=== PATIENT | female | born 1955 | race Caucasian/White ===

== ENCOUNTER 2016-11-11 21:40 | Inpatient (IN) | payer MEDICARE, OTHER ==
[~2016-11-11] VITALS: Ht 162.6 cm; Wt 112.7 kg
[~2016-11-11 21:40] MED LIST: ACYCLOVIR15 GM TP; ADVAIR 250/501 DISK INH; ADVAIR HFA [SP]12 GM INH; AMRIX15 M1 PO; AMRIX15 MG PO; ARTIFICIAL TEAR15 ML EACH EYE; ATIVAN0.5 MG PO; ATIVAN1 MG PO; BENADRYL25 MG PO; BROVANA15 MCG/2 M INH; BUMEX 1 MG TAB1 MG PO; BYSTOLIC20 MG PO; Bactroban ointment NASAL; CLEOCIN HCL300 MG PO; CLONAZEPAM0.25 MG/TA PO; COLACE100 MG PO; COMPAZINE10 MG PO; CORTISPORIN OTI10 M1 LEFT EAR; CYCLOBENZAPRINE5 MG PO; DALIRESP500 MCG PO; DILAUDID4 MG PO; DULCOLAX10 MG/SUPP RC; DUONEB 2.5-0.5 M3 ML INH; DUONEB 2.5-0.5 M3 ML UPD; ELIQUIS2.5 MG PO; FLORAJEN3 CAPS460 MG PO; FLUTICASONE PRO16 GM NS; GLUCOPHAGE1000 MG PO; HYDROCODONE-APA1 TAB PO; IMODIUM2 MG PO; IPRAT-ALBUT 0.5-3 ML UPD; JANUMET PO; JANUVIA50 MG PO; K-DUR20 MEQ PO; KLONOPIN0.5 MG PO; LANTUS SOL100 UNIT/1 SQ; LASIX20 MG; LEVAQUIN500 MG PO; LEXAPRO20 MG PO; LIDODERM 5 %1 PATCH TD; LOVENOX30 MG/0.3 SQ; LYRICA50 MG PO; LYRICA75 MG PO; MEDROL DOSE PACK4 MG PO; MERREM 500 MG/500 MG IV; MUCINEX600 MG PO; NEURONTIN600 MG PO; NORCO 10/325 TA1 TA1 PO; NORCO 5/325 TAB1 TA1 PO; NORVASC5 MG PO; OMNICEF300 MG PO; ONDANSETRON4 MG/2 M3 PO; OXYCODONE HCL10 MG PO; OXYCONTIN30 MG PO; PLAQUENIL200 MG PO; PRAVACHOL20 MG PO; PROCARDIA10 MG PO; PROTONIX40 MG PO; PROVENTIL HFA6.7 GM INH; PROVENTIL/2.5 MG/3 M NEB; ROBITUSSIN DM 110 ML PO; SALINE FLUSH10 ML IV; SENOKOT-S TABLE1 TAB PO; SINGULAIR10 MG PO; STERAPRED 5MG 125 MG PO; STERAPRED DS 1210 MG OR; SYMBICORT 16010.2 GM INH; SYNTHROID200 MC1 PO; SYNTHROID25 MCG PO; SYNTHROID300 MCG PO; TESSALON PERLE100 MG PO; TICLID250 MG PO; TYLENOL PM1 TAB PO; VALIUM 2 MG TAB2 MG PO; VANCOMYCIN1 GM/2501 IV; VANCOMYCIN250 MG/51 PO; XANAX0.5 MG PO; Z PACK; ZIAC 10/6.25 MG1 TAB PO; ZITHROMAX250 MG PO; ZYVOX600 MG PO
[2016-11-11 22:17] LABS: BASOPHILS 0.5 % (0.0-2.0); EOSINOPHILS 1.8 % (0-7); HEMATOCRIT 33.4 % (36.0-48.0); HEMOGLOBIN 9.6 g/dL (12-16); IMMATURE GRANULOCYTES 0.3 % (0-5); LYMPHOCYTES 6.7 % (15-50); MCH 22.9 pg (26.0-34.0); MCHC 28.7 g/dL (31.0-37.0); MCV 79.5 fL (80.0-100.0); MEAN PLATELET VOLUME 10.2 fL (7.4-10.4); MONOCYTES 5.4 % (2-11); NEUTROPHILS 85.3 % (40-80); PLATELET COUNT 237 10x3/uL (130-400); WBC 10.2 10x3/uL (4.8-10.8)
[2016-11-11 22:58] LABS: ALBUMIN 3.3 g/dL (3.4-5.0); ALKALINE PHOSPHATASE 65 U/L (46-116); ALT (SGPT) 38 U/L (10-68); BILIRUBIN - TOTAL 0.31 mg/dL (0.2-1.3); CALC OSMOLALITY 287 mosm/kg (275-300); CALCIUM 8.9 mg/dL (8.5-10.1); CARBON DIOXIDE 36.6 mmol/L (21.0-32.0); CHLORIDE - SERUM 100 mmol/L (98-107); CREATINE KINASE 57 UL (21-215); GLUCOSE 226 mg/dL (74-106); PROTEIN - SERUM 7.4 g/dL (6.4-8.2); SODIUM 142 mmol/L (136-145); TROPONIN-I < 0.017 ng/mL (0.000-0.060); UREA NITROGEN 6 mg/dL (7-18); eGFR NON AFRICAN AMERICAN 59 mL/min (90-120)
[2016-11-11 22:59] LABS: POTASSIUM - SERUM 2.9 mmol/L (3.5-5.1)
[2016-11-12] VITALS (26 sets, daily range): BP systolic 113–166; BP diastolic 56–85; Ht 162.6 cm; Wt 112.7 kg
--- NOTE | 2016-11-12 00:05 | NUR ---
RECIEVED PATIENT FROM ER VIA STRETCHER, PLACED IN 230. EYES PERRLA @ 4MM WITH BRISK RESPONSE, SCLERA IS WHITE AND CLEAR. 16FR NGT PRESENT IN R NARE CONNECTED TO LIS, ETT 7.0 @ 24CM NOTED LIPLINE MID. S1/S2 NOTED WITH PATIENT NSR ON TELEMETRY. BREATHING IS SHALLOW AND RYTHMIC, CRACKLES NOTED BILATERAL UPPER LOBES WITH DIMINISHED LOWER LOBES. PATIENT ON VENT A/C, R-14, V-550, 50%, PEEP-5. ABDOMEN IS SLIGHTLY DISTENDED AND SOFT, NON-TENDER TO PALPATION. 16FR COSBY SECURED BY STATLOCK WITH PALE YELLOW URINE NOTED IN COLLECTION BAG. NO MOVEMENT IN EXTREMITIES, ALL PULSES PALPABLE. PASSIVE ROM PERFORMED WITHOUT DIFFICULTY, CARP REFILL <3 SEC. PATIENT WAS D/C FROM HOSPITAL AT HER REQUEST AROUND 1600 11/11, FAMILY STATES EMS WAS CALLED AROUND 1999. PATIENT SAT ON RA WAS 47% FOR UNKNOWN LENGTH OF TIME, INTUBATED IN AMBULANCE EN ROUTE TO ER. FAMILY STATES THAT NO MEDICATION WAS TAKEN BETWEEN DISCHARGE AND READMISSION. 18G IV NOTED IN L AC AND 20G STARTED IN L WRIST, SEE FLOW SHEET FOR FLUIDS. NO FURTHER NEEDS AT THIS TIME, WILL CONTINUE TO MONITOR.
--- NOTE | 2016-11-12 03:00 | NUR ---
REASSESSMENT COMPLETE, PATIENT RESTING IN BED WITH EYES CLOSED ON VENT. BREATHING IS SHALLOW AND RYTHMIC, CRACKLES NOTED BILATERAL UPPER LOBES WITH DIMINISHED LOWER LOBES. S1/S2 NOTED WITH PATIENT NSR ON TELEMETRY. L AC & L WRIST IV PATENT WITH FLUIDS INFUSING. PALE YELLOW URINE NOTED IN COSBY. NGT R NARE TO LIS, 10ML GREEN/BROWN FLUID SUCTIONED. ETT 7.0, 24CM SECURED IN PLACE LIPLINE MID. REPOSITIONED AND ORAL CARE PROVIDED FOR COMFORT, WILL CONTINUE TO MONITOR.
[2016-11-12 03:21] LABS: APPEARANCE CLEAR (CLEAR); BILIRUBIN NEGATIVE (NEGATIVE); COLOR YELLOW (YELLOW); GLUCOSE 50 mg/dL (NEGATIVE); KETONE NEGATIVE (NEGATIVE); NITRITE NEGATIVE (NEGATIVE); PH 6.5 (5.0-6.0); PROTEIN TRACE mg/dL (NEGATIVE); SPECIFIC GRAVITY 1.015 (1.005-1.020); UROBILINOGEN NORMAL (NORMAL)
[2016-11-12 03:29] LABS: EPITHELIAL CELLS 0-5 /hpf (0-5); LEUKOCYTE ESTERASE TRACE (NEGATIVE)
[2016-11-12 03:30] LABS: BACTERIA FEW /hpf (NONE SEEN); GRANULAR CAST RARE /lpf (NONE SEEN); HYALINE CAST OCC /lpf (NONE SEEN)
--- NOTE | 2016-11-12 05:00 | NUR ---
PATIENT RESTING IN BED WITH EYES CLOSED, BREATHING IS SHALLOW ON VENTILATOR. VENT A/C, R-14, V-550, PEEP-5. ELECTROLYTE REPLACEMENT ONGOING, WILL MONITOR UNTIL COMPLETION. NO ADVERSE EFFECTS NOTED AT THIS TIME, ORAL CARE AND REPOSITIONING PROVIDED FOR COMFORT. ALL VSS AND WILL CONTINUE TO MONITOR.
--- NOTE | 2016-11-12 07:18 | NUR ---
CALLED INTO PATIENTS ROOM BY DAUGHTER DENIA. SHE IS VERY TEARFUL AND UPSET THAT HER MOM GOT DISCHARGED YESTERDAY "WHEN SHE WASN'T READY AND NOW LOOK AT HER". ALLOWED HER TO VERBALIZE HER FEELINGS. OFFERED MY CONDOLENCES. DENIA REQUESTED THAT I HAVE THE DOCTOR CALL HER IF SHE WASN'T HERE WHEN HE ROUNDED. EXPLAINED THAT I COULD ASK HIM TO, BUT I COULD NOT MAKE A PROMISE THAT HE WOULD. SHE ASKED IF I COULD CALL HER WHILE HE WAS HERE AND THEN PUT HIM ON THE PHONE. EXPLAINED THAT IT WOULD BE BEST FOR HIM TO CALL HER ON HIS TIME IF HE WILL VERSES DOING IT THAT WAY. EXPLAINED THAT DEPENDING ON THE PHYSICIANS MOOD, THAT APPROACH COULD UPSET HIM AND MAKE IT TO WHERE THEY WON'T TALK AT ALL. SHE STATED UNDERSTANDING. ALL QUESTIONS THAT WERE ABLE TO BE ANSWERED AT THIS TIME WERE. THIS NURSE EXCUSED HERSELF FROM THE ROOM, AND ENCOURAGED DENIA TO CALL IF SHE HAS ANY MORE QUESTIONS.
--- NOTE | 2016-11-12 10:14 | NUR ---
BEDSIDE BRONCHOSCOPY DONE BY DR ZURITA WITH CHEMA, RESPIRATORY ASSISTING, THIS NURSE OBSERVING. DR ZURITA DID REQUEST FIONA RT COME IN ROOM TO HELP, SO I LEFT ROOM LONG ENOUGH TO DO THIS.
--- NOTE | 2016-11-12 10:25 | NUR ---
BRONCHOSCOPY COMPLETED. PATIENT DID WELL. VITALS ARE HR-81, SATS 100%, RR- 20, B/P 124/69 (87). PT SHOOK HEAD NO TO NEEDS.
[2016-11-12 10:26] LABS: POTASSIUM - SERUM 3.9 mmol/L (3.5-5.1)
--- NOTE | 2016-11-12 10:33 | NUR ---
PATIENTS PULMOCARE STARTED AT 10CC/HR WITH 75CC FLUSH EVERY 4 HOURS PER ORDERS TO A NGT SECURED AT RIGHT NARE. THIS WAS EXPLAINED TO THE PATIENT AND SHE SHOOK HER HEAD NO TO QUESTIONS. AIR BOLUS CONFIRMED PLACEMENT OF THE NGT AND THERE WAS NO RESIDUAL RECEIVED. PATIENT'S NGT HAS BEEN HOOKED UP TO [facility], WITH 125 OUT FROM MARKING ON EMBROIDERY OPERATOR. WILL MONITOR.
--- NOTE | 2016-11-12 11:00 | NUR ---
PATIENT SATS 68% ON 40%, WAVEFORM GOOD, LUNGS CTA, PATIENT REMAINS AWAKE ENOUGH THAT SHE CAN WRITE SHORT NOTES ON PAPER. ASKED BIPIN RESPIRATORY THERAPIST TO PLEASE EVALUATE PATIENT WITH ME. PATIENT WAS GIVEN 100% OXYGEN FOR 2 MINUTES AND SATS WENT UP TO 100%. AFTER THAT TWO MINUTES, PATIENTS SATS HELD AROUND 97-96%. AFTER ABOUT 3 MINUTES ON THE 40% THROUGH THE VENT, THE PATIENTS SATS WERE 90-91% S/P BRONCH. AT THIS TIME BIPIN INCREASED OXYGENATION TO 60%. SATS HOLDING 93-95%.
--- NOTE | 2016-11-12 11:29 | NUR ---
PATIENT PLACED ON ENTERIC ISOLATION. PATIENT WAS JUST DISCHARGED FROM THE HOSPITAL YESTERDAY WHERE SHE WAS ON THIS ISOLATION. HER CDT TOXIN IS NEGATIVE BUT HER CDT ANTIGEN IS POSITIVE.
[2016-11-12 11:36] LABS: BASOPHILS 0.1 % (0.0-2.0); EOSINOPHILS 0 % (0-7); HEMATOCRIT 31.3 % (36.0-48.0); IMMATURE GRANULOCYTES 0.1 % (0-5); LYMPHOCYTES 5.3 % (15-50); MCH 22.5 pg (26.0-34.0); MCHC 28.8 g/dL (31.0-37.0); MCV 78.3 fL (80.0-100.0); MEAN PLATELET VOLUME 10.2 fL (7.4-10.4); MONOCYTES 4.9 % (2-11); NEUTROPHILS 89.6 % (40-80); PLATELET COUNT 229 10x3/uL (130-400); WBC 7.8 10x3/uL (4.8-10.8)
[2016-11-12 11:48] LABS: ANION GAP 10.9 mmol/L (8-16); CALCIUM 8.9 mg/dL (8.5-10.1); POTASSIUM - SERUM 3.9 mmol/L (3.5-5.1)
--- NOTE | 2016-11-12 13:10 | NUR ---
PATIENTS PROPOFOL INCREASED TO 60 MCG SECONDARY TO NOT BEING WELL SEDATED.
[2016-11-12 13:37] LABS: % SATURATION 5 % (15-55); IRON 22 ug/dl (35-150); TOTAL IRON BIND CAPACITY 367 ug/dl (260-445); UNSAT IRON BIND CAPACITY 345 ug/dl (150-375)
[2016-11-12 13:44] LABS: ALBUMIN 3.2 g/dL (3.4-5.0); ALKALINE PHOSPHATASE 57 U/L (46-116); ALT (SGPT) 32 U/L (10-68); BILIRUBIN - DIRECT 0.11 mg/dL (0.00-0.30); BILIRUBIN - INDIRECT 0.22 mg/dL (0.00-1.00); BILIRUBIN - TOTAL 0.33 mg/dL (0.2-1.3); CKMB 1.1 U/L (0.0-3.6); CREATINE KINASE 38 UL (21-215); FERRITIN 24 ng/mL (3-244); PROTEIN - SERUM 7.1 g/dL (6.4-8.2)
[2016-11-12 13:45] LABS: TROPONIN-I < 0.017 ng/mL (0.000-0.060)
--- NOTE | 2016-11-12 15:30 | NUR ---
FAMILY HERE, DAUGHTER DENIA STATED AFTER HER TALK WITH DR SALMON, IT WAS DECIDED IT WOULD BE BEST IF THE PATIENT HAD NO VISITORS. THIS WAY SHE CAN "REST UP UNTIL IT IS TIME TO PULL HER TUBE". DENIA REQUESTED THAT SHE BE NOTIFIED SOON HER ET TUBE HAS BEEN PULLED. IT WAS EXPLAINED THAT I WOULD PASS IT ALONG IN REPORT.
--- NOTE | 2016-11-12 16:07 | NUR ---
PATIENT PROPOFOL OUT. VIAL REPLACED. CURRENT RATE IS 70 MCG/KG/MIN. PATIENTS EYES DRIFTED CLOSED WHILE THIS NURSE WAS IN THE ROOM.
--- NOTE | 2016-11-12 17:13 | NUR ---
PATIENT RESTING COMFORTABLE AT THIS TIME. NO VISUAL CUES OF DISTRESS NOTED.
--- NOTE | 2016-11-12 17:37 | NUR ---
TUBE FEEDING INCREASED TO 20 ML/HR AFTER RESIDUAL CHECK. PATIENT HAD <5CC OF PULMOCARE REMOVED AND RETURNED. WILL CONTINUE TO MONITOR.
--- NOTE | 2016-11-12 19:00 | NUR ---
PATIENT RESTING IN BED ON VENTILATOR, SEDATED WITH PROPOFOL AT A MAX RATE OF 75MCG/KG/HR. PATIENT OPENS EYES TO SPEECH AND WILL NOD HEAD YES AND NO. NGT IN RIGHT NARE INFUSING PULMARE AT 20 WITH A GOAL RATE OF 30. NO RESIDUAL. LUNG SOUNDS CLEAR, S1S2 NOTED, BOWEL SOUNDS ACTIVE. ABDOMEN DISTENDED AND SOFT. COSBY CATHETER DRAINING PALE YELLOW URINE. GENERALIZED EDEMA IN EXTREMITIES. +2 PULSES IN EXTREMITIES. PIV IN RIGHT WRIST AND RIGHT AC. PATIENT REQUESTED PEN AND PAPER AT THIS TIME AND ASKED TO TURN FAN ON AND REMOVE HER BLANKET. DENIES FURTHER NEED. VSS.
[2016-11-12 19:38] LABS: CREATINE KINASE 36 UL (21-215)
[2016-11-12 19:39] LABS: TROPONIN-I < 0.017 ng/mL (0.000-0.060)
--- NOTE | 2016-11-12 21:00 | NUR ---
FAMILY CALLED AND TALKED AT LENGTH ABOUT EVENTS TODAY AND EXPRESSED SHE WAS UPSET, STATED "I DON'T WANT ANY VISITORS THERE, BUT I WANT TO BE CALLED WHEN SHE'S EXTUBATED". STATED UNDERSTANDING AND SHE CALMED DOWN.
--- NOTE | 2016-11-12 23:00 | NUR ---
REASSESSMENT COMPLETE, NO CHANGES FROM PREVIOUS. PATIENT CALM AND RELAXED. DENIES NEED.
[2016-11-13] VITALS (23 sets, daily range): BP systolic 119–167; BP diastolic 51–90
--- NOTE | 2016-11-13 01:00 | NUR ---
PATIENT BANGING ON SIDE RAIL ASKING FOR FAN TO BE TURNED OFF. PATIENT SHAKES HEAD NO WHEN ASKED IF SHE NEEDS ANYTHING ELSE.
[2016-11-13 01:43] LABS: CKMB 0.4 U/L (0.0-3.6); CREATINE KINASE 21 UL (21-215); TROPONIN-I < 0.017 ng/mL (0.000-0.060)
--- NOTE | 2016-11-13 02:00 | NUR ---
PATIENT TRYING TO GET OUT OF BED. PUT PATIENT BACK DOWN AND TOLD HER SHE HAD TO CALM DOWN THAT SHE CAN NOT GET UP WHILE BEING INTUBATED. SHOOK HEAD SHE UNDERSTOOD AND BOLUS GIVEN.
--- NOTE | 2016-11-13 03:00 | NUR ---
REASSESSMENT COMPLETE. NO MAJOR CHANGES BESIDES PATIENT IS VERY IRRITABLE AND HARD TO GET SEDATED. MULTIPLE BOLUSES OF DIPRIVAN GIVEN AND PATIENT STILL THRASHING IN BED. VSS, WILL CONTINUE TO MONITOR.
--- NOTE | 2016-11-13 04:00 | NUR ---
PATIENT RESTING MUCH BETTER. VSS.
--- NOTE | 2016-11-13 05:00 | NUR ---
PATIENT RESTING QUIETLY IN BED, VSS. WILL CONTINUE TO MONITOR.
[2016-11-13 05:34] LABS: BASOPHILS 0.2 % (0.0-2.0); EOSINOPHILS 0.1 % (0-7); HEMOGLOBIN 8.6 g/dL (12-16); IMMATURE GRANULOCYTES 0.2 % (0-5); LYMPHOCYTES 6.8 % (15-50); MCH 22.2 pg (26.0-34.0); MCHC 28.7 g/dL (31.0-37.0); MCV 77.5 fL (80.0-100.0); MEAN PLATELET VOLUME 10.4 fL (7.4-10.4); MONOCYTES 6.9 % (2-11); NEUTROPHILS 85.8 % (40-80); PLATELET COUNT 205 10x3/uL (130-400); RBC 3.87 10x6/uL (4.00-5.40); RDW 17.7 % (11.5-14.5); WBC 8.1 10x3/uL (4.8-10.8)
[2016-11-13 05:44] LABS: CALCIUM 8.3 mg/dL (8.5-10.1); CARBON DIOXIDE 33.7 mmol/L (21.0-32.0); POTASSIUM - SERUM 3.7 mmol/L (3.5-5.1)
--- NOTE | 2016-11-13 07:00 | NUR ---
REC'ED REPORT FROM OUTGOING RN - PT EAISLY AROUSED BY VERBAL STIMULI - PT ABLE TO NOD YES/NO ANSWERS TO MAKE WISHES KNOWN. PT UNCOMORTABLE WITH INFUSING PROPROFOL/75MCG.
--- NOTE | 2016-11-13 08:30 | NUR ---
ASSESSMENT COMPLETE - AM MEDS GIVEN - CONT. PLAN OF CARE.
--- NOTE | 2016-11-13 10:00 | NUR ---
RT AT BEDSIDE (SEE RT FLOW SHEET) PT CONTINUES TO BE AWAKE ON MAXIMUM DOSE OF PROPROFOL.
--- NOTE | 2016-11-13 10:30 | NUR ---
DR. REESE AT BEDSIDE - VERSED ORDERED TO TITRATE TO GREGORY SCALE OF 3. ADMISTERED PER ORDER. PT RESTING. CONT PLAN OF CARE
--- NOTE | 2016-11-13 13:34 | NUR ---
PT RESTING - EYES CLOSED - RESPIRATIONS REG/RATE/RHYTM - CONT. POC
--- NOTE | 2016-11-13 14:00 | NUR ---
FAMILY CALLED - REVIEWED PLAN OF CARE. PT RESTING WITH EYE CLOSED - RESPIRATIONS REG RATE RHYTHM
--- NOTE | 2016-11-13 15:00 | NUR ---
RT AT BEDSIDE - SEE RT FLOW SHEET - CONTINUE POC
--- NOTE | 2016-11-13 17:00 | NUR ---
RT AT BEDSIDE = SEE RT FLOW SHEET
--- NOTE | 2016-11-13 19:50 | NUR ---
SHIFT ASSESSMENT COMPLETED. SEE ASSESSMENT FLOWSHEET. ORAL CARE COMPLETED AND SHAKES HEAD BACK AND FORTH NOT ALLOWING MUCH ORAL CARE TO BE COMPLETED. RT NARE NG TUBE WITH PULMOCARE INFUSING AT 30ML/HR. <20ML GASTRIC RESIDUAL.
[2016-11-13 20:06] LABS: AFB SPECIMEN PROCESSING Concentration (())
--- NOTE | 2016-11-13 21:50 | NUR ---
2100 IVP OF SOLU-MEDROL GIVEN SLOWLY. ORAL CARE PROVIDED. TURNED BUT SEE ADL'S FOR TIMES AND POSITION. WILL MONITOR.
--- NOTE | 2016-11-13 23:30 | NUR ---
REASSESSMENT COMPLETED. SEE ASSESSMENT FLOWSHEET FOR DETAILS. NO NEW ACUTE CHANGES IN ASSESSMENT EXCEPT BILATERAL CHEECK REDNESS NOTED BELOW OETT GARCIA. REMOVED BLANKET AND FAN TURNED MORE ON PATIENT DUE TO TEMP SLIGHTLY ELEVATED-SEE VITALS. TURNED AND REPOSITIONED. ORAL CARE PROVIDED. WILL MONITOR.
[2016-11-14] VITALS (26 sets, daily range): BP systolic 111–182; BP diastolic 58–88
--- NOTE | 2016-11-14 | NUR ---
FAMILY-DAUGHTER CALLED TO GET UPDATE AND WANTED NURSING TO TELL HER MOM HAPPY NEW YEAR. COMPLETED AND PATIENT OPENED EYES AND SHOOK HEAD "YES" IN UNDERSTANDING. FAMILY MADE AWARE AND STATES SHE IS COMING UP TO VISIT.
--- NOTE | 2016-11-14 00:50 | NUR ---
DAUGHTER AT BEDSIDE. UPDATE GIVEN. INFORMED HER OF FACIAL FLUSHING. WILL MONITOR. TEMP SLIGHTLY ELEVATED. COOL WASH CLOTH APPLIED TO FOREHEAD.
--- NOTE | 2016-11-14 01:40 | NUR ---
AWAKE, COUGHING. SHAKING HEAD SIDE TO SIDE. NEW VIAL OF VERSED HUNG AND INCREASED TO 4MG/HR.
--- NOTE | 2016-11-14 03:05 | NUR ---
PORTABLE CHEST XRAY COMPLETED. TOLERATED WELL.
--- NOTE | 2016-11-14 03:30 | NUR ---
BED BATH AND LINEN CHANGE COMPLETED. POSTERIOR SIDE WITH BM SMEAR. SAMPLE TAKEN TO LAB FOR OCCULT BLOOD TESTING. NO SKIN BREAKDOWN NOTED. ORAL CARE PROVIDED. TURNED AND REPOSITIONED FOR PRESSURE RELIEF. HEELS BRIDGED.
--- NOTE | 2016-11-14 05:20 | NUR ---
NEW IV BAG MORAIMA, IV BRYCE VALERA. ORAL CARE PROVIDED. TURNED AND REPOSITIONED. DECREASIGN BRYCE DUE TO GREGORY 3 AT PRESENT.
[2016-11-14 05:46] LABS: BASOPHILS 0.1 % (0.0-2.0); EOSINOPHILS 0 % (0-7); HEMATOCRIT 28.9 % (36.0-48.0); HEMOGLOBIN 8.2 g/dL (12-16); IMMATURE GRANULOCYTES 1.3 % (0-5); LYMPHOCYTES 6.8 % (15-50); MCHC 28.4 g/dL (31.0-37.0); MCV 77.7 fL (80.0-100.0); MEAN PLATELET VOLUME 10.7 fL (7.4-10.4); MONOCYTES 4.3 % (2-11); NEUTROPHILS 87.5 % (40-80); RBC 3.72 10x6/uL (4.00-5.40); RDW 17.8 % (11.5-14.5)
[2016-11-14 05:50] LABS: PLATELET COUNT 249 10x3/uL (130-400)
[2016-11-14 05:52] LABS: ANION GAP 9.8 mmol/L (8-16); CARBON DIOXIDE 33.6 mmol/L (21.0-32.0); POTASSIUM - SERUM 3.4 mmol/L (3.5-5.1)
--- NOTE | 2016-11-14 06:13 | NUR ---
POTASSIUM REPLACEMENT GIVEN VIA NG TUBE WITH WATER. WILL MONITOR.
--- NOTE | 2016-11-14 07:00 | NUR ---
REPORT RECIEVED, INITIAL ASSESSMENT COMPLETE, PLEASE SEE FLOW SHEETS FOR DETAILS. VSS AT THIS TIME, WILL CONTINUE TO MONITOR.
[2016-11-14 08:40] LABS: VANCOMYCIN - TROUGH 25.5 ug/mL (10.0-20.0)
[2016-11-14 08:42] LABS: POTASSIUM - SERUM 4.1 mmol/L (3.5-5.1)
--- NOTE | 2016-11-14 09:15 | NUR ---
ORAL CARE AND TURNING PROVIDED. VSS AT THIS TIME, WILL CONTINUE TO MONITOR.
--- NOTE | 2016-11-14 09:43 | NUR ---
DECREASED DIPRIVAN TO 40 MCG/KG/MIN PER RT REQUEST FOR CPAP TRIALS.
--- NOTE | 2016-11-14 10:20 | NUR ---
DIPRIVAN DECREASED TO 15 MCG/KG/MIN PER DR ZURITA ORDER FOR WEANING.
--- NOTE | 2016-11-14 11:00 | NUR ---
REASSESSMENT COMPLETE, PLEASE SEE FLOW SHEETS FOR DETAILS. RESIDUAL FROM NGT AT 130ML, THIS WAS RETURNED. DECREASED DIPRIVAN TO 8 MCG/KG/MIN PER RT FOR WEANING. PT REFUSED ORAL CARE, TURNING PROVIDED. VSS AT THIS TIME, WILL CONTINUE TO MONITOR.
--- NOTE | 2016-11-14 11:47 | NUR ---
DIPRIVAN INCREASED TO 35 MCG/KG/MIN PER RT PUT PT BACK ON SIMV WITH THE VENT. PT SPO2 WAS 74-85% ON CPAP. WILL TITRATE DIPRIVAN ACCORDINGLY.
--- NOTE | 2016-11-14 12:41 | NUR ---
INCREASED DIPRIVAN TO 45 MCG/KG/MIN PT NOT SEDATED, IS ANSWERING YES/NO QUESTIONS AND FOLLOWING COMMANDS.
--- NOTE | 2016-11-14 13:00 | NUR ---
ORAL CARE AND TURNING PROVIDED. VSS AT THIS TIME, WILL CONTINUE TO MONITOR.
--- NOTE | 2016-11-14 13:30 | NUR ---
REPLACED TUBE FEEDING BAG.
--- NOTE | 2016-11-14 15:00 | NUR ---
REASSESSMENT COMPLETE, PLEASE SEE FLOW SHEETS FOR DETAILS. FULL BED BATH AND LINEN CHANGE PROVIDED. ORAL CARE AND TURNING PROVIDED. VSS AT THIS TIME, WILL CONTINUE TO MONITOR.
--- NOTE | 2016-11-14 17:00 | NUR ---
ORAL CARE AND TURNING PROVIDED. VSS AT THIS TIME. WILL CONTINUE TO MONITOR.
--- NOTE | 2016-11-14 18:07 | NUR ---
INCREASED DIPRIVAN TO 50 MCG/KG/MIN PT RESTLESS AND BP SPIKING. WILL CONTINUE TO MONITOR.
--- NOTE | 2016-11-14 19:00 | NUR ---
RECEIVED PATIENT IN BED WITH EYES OPEN ON VENT. PATIENT IS UNABLE TO SPEAK DUE TO ETT 7.5 @ 25CM LOCATED MIDLINE LIP, BUT CAN NOD HEAD IN RESPONSE TO QUESTIONS. PATIENT ON VENT @ 40%, R-14, V-600, P-5, PS-10 VIA ETT, NGT R NARE WITH PULMOCARE @ 30ML/HR. S1/S2 NOTED WITH PATIENT SLIGHTLY TACHYCARDIC ON TELEMETRY, RYTHM IS REGULAR. CRACKLES AND DIMINISHED SOUNDS NOTED BILATERAL UPPER WITH DIMINISHED LOWER LOBES. ABDOMEN IS DISTENDED AND SOFT, NON-TENDER TO PALPATION. COSBY SECURED BY STATLOCK IN PLACE, PALE CLEAR URINE NOTED IN COLLECTION BAG. WEAKNESS NOTED IN ALL EXTREMITIES, ALL PULSES PALPABLE. 20G IV NOTED L AC, 18G L WRIST, SEE FLOW SHEET FOR FLUIDS. PATIENT IS ON CONTACT PRECAUTION FOR C. DIFF, ISOLATION PROTOCOL IN EFFECT. PATIENT CALL LIGHT AND BED TABLE IN REACH, ALL VSS. ORAL CARE/SUCTIONING PROVIDED, WILL CONTINUE TO MONITOR.
--- NOTE | 2016-11-14 21:00 | NUR ---
PATIENT DAUGHTER CALLED DURING VISITING HOURS ASKING ABOUT STATUS, PASSWORD PROVIDED AND UPDATE GIVEN. NO VISITORS REQUESTED FOR PATIENT, FAMILY WILL CALL BACK TOMORROW FOR UPDATED STATUS. ALL VSS, WILL CONTINUE TO MONITOR.
--- NOTE | 2016-11-14 22:50 | NUR ---
REASSESSMENT COMPLETE, NO CHANGES FROM PREVIOUS ASSESSMENT. PATIENT RESTING IN BED WITH EYES CLOSED ON VENT, LUNG SOUNDS ARE DIMINISHED IN ALL LOBES WITH CRACKLES NOTED BILATERAL UPPER. PATIENT OPENS EYES SPONTANEOUSLY, AND NODS HEAD IN RESPONSE TO QUESTIONS. PATIENT DENIES PAIN OR OTHER NEEDS AT THIS TIME, ALL VSS, WILL CONTINUE TO MONITOR.
[2016-11-15] VITALS (25 sets, daily range): BP systolic 131–187; BP diastolic 63–104
--- NOTE | 2016-11-15 00:55 | NUR ---
PATIENT HAD MODERATE BM, STOOL WAS BROWN/BLACK AND SEMI-FORMED. FULL BED BATH/LINEN CHANGE PERFORMED, COSBY CARE PERFORMED. PATIENT TOLERATED WELL, REPOSITIONED FOR COMFORT. ALL VSS AND WILL CONTINUE TO MONITOR.
--- NOTE | 2016-11-15 03:00 | NUR ---
REASSESSMENT COMPLETE, PATIENT LAYING IN BED WITH EYES CLOSED ON VENT. BREATHING IS SHALLOW AND IRREGULAR ON VENT, DIMINISHED SOUNDS ALL LOBES WITH CRACKLES NOTED BILATERAL UPPER. RADIOLOGY AT BEDSIDE, PATIENT TOLERATED WELL WITH NO COMPLAINTS. PATIENT SBP REMAINS >90 WITH MAP >70, ALL VSS. PATIENT DENIES PAIN OR OTHER NEEDS AT THIS TIME, WILL CONTINUE TO MONITOR.
--- NOTE | 2016-11-15 05:00 | NUR ---
PATIENT RESTING IN BED WITH EYES CLOSED, BREATHING IS SHALLOW ON VENT. AM LABS DRAWN BY TRANSPORTATION DISPATCH MANAGER, WILL WAIT FOR RESULTS TO DETERMINE IF ELECTROLYTE PROTOCOL IS NEEDED. PATIENT DENIES PAIN OR OTHER NEEDS AT THIS TIME, ALL VSS. WILL CONTINUE TO MONITOR.
[2016-11-15 05:52] LABS: BASOPHILS 0.1 % (0.0-2.0); EOSINOPHILS 0 % (0-7); HEMATOCRIT 31.1 % (36.0-48.0); HEMOGLOBIN 8.6 g/dL (12-16); IMMATURE GRANULOCYTES 0.9 % (0-5); LYMPHOCYTES 8.6 % (15-50); MCH 21.9 pg (26.0-34.0); MCHC 27.7 g/dL (31.0-37.0); MCV 79.1 fL (80.0-100.0); MEAN PLATELET VOLUME 10.4 fL (7.4-10.4); MONOCYTES 7.2 % (2-11); NEUTROPHILS 83.2 % (40-80); PLATELET COUNT 254 10x3/uL (130-400); RBC 3.93 10x6/uL (4.00-5.40); RDW 17.7 % (11.5-14.5); WBC 7.7 10x3/uL (4.8-10.8)
[2016-11-15 06:07] LABS: CALC OSMOLALITY 299 mosm/kg (275-300); CALCIUM 8.7 mg/dL (8.5-10.1); CARBON DIOXIDE 33.5 mmol/L (21.0-32.0); CHLORIDE - SERUM 105 mmol/L (98-107); CREATININE - SERUM 0.8 mg/dL (0.6-1.3); GLUCOSE 231 mg/dL (74-106); POTASSIUM - SERUM 3.8 mmol/L (3.5-5.1); SODIUM 146 mmol/L (136-145); UREA NITROGEN 17 mg/dL (7-18); eGFR NON AFRICAN AMERICAN 77 mL/min (90-120)
--- NOTE | 2016-11-15 07:00 | NUR ---
REPORT RECIVED, INITIAL ASSESSMENT COMPLETE, PLEASE SEE FLOW SHEETS FOR DETAILS. ORAL CARE AND TURNING PROVIDED. SCD'S CHECKED AND SKIN WNL. RESTRAINTS CHECKED AND SECURED WITH QUICK RELEASE KNOTS. BED LOW AND LOCKED, CALL LIGHT IN REACH. VSS AT THIS TIME, WILL CONTINUE TO MONITOR.
--- NOTE | 2016-11-15 07:39 | NUR ---
DECREASED DIPROVAN TO 25 MCG/KG/MIN PER RT FOR WEANING. WILL MONITOR.
--- NOTE | 2016-11-15 09:06 | NUR ---
ORAL CARE AND TURNING PROVIDED. BP INCREASED FROM WEANING. WILL NOTIFY RT. WILL CONTINUE TO MONITOR PT.
--- NOTE | 2016-11-15 09:51 | NUR ---
BP STABALIZED, WILL CONTINUE TO MONITOR.
--- NOTE | 2016-11-15 09:55 | NUR ---
DECREASED DIPROVAN TO 12.5 PER RT FOR WEANING, WILL CONTINUE TO MONITOR.
--- NOTE | 2016-11-15 10:10 | NUR ---
DECREASED VERSED TO 3.5 FOR WEANING. PT OPENS EYES TO SPEACH AND ANDSWERS YES/NO QUESTIONS AND CAN LOCALIZE PAIN. LOVES EXTREMITIES WELL. EDUCATED HER ABOUT WEANING AND TO STAY CALM AND FOCUS ON BIG DEEP BREATHS AND SHE NODDED HER HEAD SAYING SHE WOULD. VSS AT THIS TIME, WILL CONTINUE TO MONITOR.
--- NOTE | 2016-11-15 10:30 | NUR ---
DECREASED DIPROVAN TO 6MCG/KG/MIN PER RT FOR WEANING. BP STABLE ARE OTHER VITALS. PT NOTIFIED OF SEDATION LIFTING AND SHE UNDERSTANDS. WILL CONTINUE TO MONITOR.
--- NOTE | 2016-11-15 10:50 | NUR ---
REASSESSMENT COMPLETE, PLEASE SEE FLOW SHEETS FOR DETAILS. ORAL CARE AND TURNING PROVIDED. VSS AT THIS TIME, WILL CONTINUE TO MONITOR.
[2016-11-15 11:08] LABS: FUNGUS STAIN Final report (())
--- NOTE | 2016-11-15 11:15 | NUR ---
PT DAUGHTER DENIA LEGGETT CALLED ASKING ABOUT EXTUBATION, INFORMED HER THAT WE WERE IN THE PROCESS OF WEANING AND WERE NOT FINNISHED YET. SHE ASKED THAT I CALL HER AND LET HER KNOW IF/WHEN THE PT IS EXTUBATED.
--- NOTE | 2016-11-15 12:00 | NUR ---
SPOKE WITH PT, INFORMED HER THAT DR ZURITA HAS ORDERED ABG'S AND IF THEY ARE GOOD, WE WILL ATTEMPT EXTUBATION. DECREASED VERSED TO 3. WILL MONITOR.
--- NOTE | 2016-11-15 12:19 | NUR ---
VERSED AND ANNMARIE STOPPED PER DR ZURITA FOR WEANING, TO GET ABG'S AND MOVE FORWARD WITH WEANING.
--- NOTE | 2016-11-15 12:20 | NUR ---
Nutrition Follow Up: Chart reviewed. Pt in proces of weaning from vent. Noted pt is +CDT. TF of Pulmocare with goal rate of 30 ml/hr. Meds: NS @ 75 ml/hr, Solu Medrol, Lasix, Diprivan - rate is currently being decreased Labs noted - Na, Glucose elevated +BM 11/15/16 I<O Wt loss 20# since admit If pt is unable to extubate rec continue current TF regimen. RD following.
--- NOTE | 2016-11-15 12:39 | NUR ---
ABG'S ACQUIRED, DR ZURITA SAID WE WILL BE EXTUBATING, WILL NOTIFY FAMILY.
--- NOTE | 2016-11-15 13:26 | NUR ---
1315 EXTUBATED SUCCESSFULLY, ON 12 L OXYMIZER AT 97%. VSS AT THIS TIME, WILL CONTINUE TO MONITOR.
--- NOTE | 2016-11-15 13:47 | NUR ---
PER DR ZURITA, RESUME TUBE FEEDING.
--- NOTE | 2016-11-15 14:01 | NUR ---
SPOKE WITH PT DAUGHTER DENIA LEGGETT, NOTIFIED HER OF PT STATUS.
--- NOTE | 2016-11-15 14:05 | NUR ---
1400 PT COMPLAINING OF SEVERE BACK PAIN (SHE HAS CHRONIC BACK PAIN) SO DR GONZALEZ WAS PAGED. 1402 DR GONZALEZ CALLED BACK AND ORDERED TRAMADOL 100MG Q6PRN. WILL ORDER AND GIVE ORDERED.
--- NOTE | 2016-11-15 15:05 | NUR ---
REASSESSMENT COMPLETE, PLEASE SEE FLOW SHEETS FOR DETAILS. PT PERFORMS SELF ORAL CARE AND REFUSED TURNING. VSS AT THIS TIME, WILL CONTINUE TO MONITOR.
--- NOTE | 2016-11-15 17:00 | NUR ---
PT RESTING, ASKED THAT I CALL A FAMILY MEMBER WITH A LIST OF THINGS TO BRING HER TOMORROW, THIS WAS DONE. BED LOW AND LOCKED, CALL LIGHT IN REACH. VSS, WILL CONTINUE TO MONITOR.
--- NOTE | 2016-11-15 19:00 | NUR ---
RECEIVED PATIENT AWAKE AND ALERT IN BED WITH EYES OPEN, PATIENT IS AO X4. EYES PERRLA @ 4MM WITH BRISK RESPONSE, SCLER IS WHITE AND CLEAR WITH CLEAR DRAINAGE NOTED BILATERAL. PATIENT ON OXIMIZER @ 8L WITH O2 SAT OF 96%, MUCOSA IS DRY AND INTACT. S1/S2 NOTED WITH PATIENT NSR ON TELEMETRY. BREATHING IS SHALLOW AND RYTHMIC, FINE CRACKLES NOTED IN UPPER LOBES WITH LUNG SOUNDS DIMINISHED THROUGHOUT. ABDOMEN IS DISTENDED AND SOFT, BOWEL SOUNDS ACTIVE X4. COSBY SECURED IN PLACE WITH STATLOCK, CLEAR YELLOW URINE NOTED IN COLLECTION BAG. FULL ROM ALL EXTREMITIES WITH SLIGHT WEAKNESS NOTED IN ALL EXTREMITIES. ALL PULSES PALPABLE, CAP REFILL <3 SEC. SKIN IS COOL AND DRY TO TOUCH WITH NON-TENTING TURGOR NOTED. PATIENT STATES ANXIETY ABOUT BIPAP MASK, SHE IS "AFRAID TO WEAR THE MASK BECAUSE SHE IS COUGHING UP BLOOD." SCANT AMOUNT OF PINK SPUTUM NOTED WHEN PATIENT COUGHS, POSSIBLY FROM IRRITATION DUE TO EXTUBATION TODAY. 20G IV NOTED IN L AC, SEE FLOW SHEET FOR FLUIDS. PATIENT HAS NGT IN R NARE WITH PULMOCARE @ 30ML/HR, RESIDUAL CHECKED AND 8ML ASPIRATED AND RETURNED. PATIENT STATES PAIN 6/10, PRN MEDS GIVEN AND WILL REASSESS. PATIENT DENIES OTHER NEEDS AT THIS TIME, WILL CONTINUE TO MONITOR.
--- NOTE | 2016-11-15 21:15 | NUR ---
AT BEDSIDE, PATIENT DENIES PAIN OR OTHER NEEDS AT THIS TIME. UPDATED FAMILY ON PATIENT STATUS AND ANSWERED ANY QUESTIONS, REPOSTITIONED AND ORAL CARE PROVIDED FOR COMFORT. WILL CONTINUE TO MONITOR.
--- NOTE | 2016-11-15 23:00 | NUR ---
REASSESSMENT COMPLETE, PATIENT RESTING IN BED WITH EYES OPEN. BREATHING IS SHALLOW ON OXIMIZER @ 8L, O2 SAT 95%. PATIENT DENIES PAIN OR OTHER NEEDS AT THIS TIME, ALL VITALS STABLE. REPOSITIONED FOR COMFORT, WILL CONTINUE TO MONITOR.
[2016-11-16] VITALS (25 sets, daily range): BP systolic 120–174; BP diastolic 54–82
--- NOTE | 2016-11-16 03:00 | NUR ---
REASSESSMENT COMPLETE, PATIENT LAYING IN BED ON BIPAP WITH EYES OPEN. NO CHANGES FROM PREVIOUS ASSESSMENT, PATIENT DENIES PAIN OR OTHER NEEDS AT THIS TIME. BREATHING IS SHALLOW AND RYTHMIC WITH LUNG SOUNDS DIMINISHED ALL MORGAN AND FINE CRACKLES NOTED IN UPPER LOBES. OXYGEN SAT 96% ON BIPAP 40%, NO DIFFICULTIES. ALL VSS AND WILL CONTINUE TO MONITOR.
[2016-11-16 04:14] LABS: BASOPHILS 0.2 % (0.0-2.0); EOSINOPHILS 0.3 % (0-7); HEMATOCRIT 34.8 % (36.0-48.0); HEMOGLOBIN 9.7 g/dL (12-16); IMMATURE GRANULOCYTES 0.4 % (0-5); LYMPHOCYTES 6.8 % (15-50); MCHC 27.9 g/dL (31.0-37.0); MCV 78.9 fL (80.0-100.0); MEAN PLATELET VOLUME 10.3 fL (7.4-10.4); MONOCYTES 6.3 % (2-11); PLATELET COUNT 267 10x3/uL (130-400); RBC 4.41 10x6/uL (4.00-5.40); RDW 17.3 % (11.5-14.5); WBC 9.5 10x3/uL (4.8-10.8)
[2016-11-16 04:41] LABS: CALC OSMOLALITY 295 mosm/kg (275-300); CALCIUM 8.7 mg/dL (8.5-10.1); CARBON DIOXIDE 36.4 mmol/L (21.0-32.0); CHLORIDE - SERUM 102 mmol/L (98-107); CREATININE - SERUM 0.8 mg/dL (0.6-1.3); GLUCOSE 240 mg/dL (74-106); POTASSIUM - SERUM 3.6 mmol/L (3.5-5.1); SODIUM 143 mmol/L (136-145); UREA NITROGEN 20 mg/dL (7-18); eGFR NON AFRICAN AMERICAN 77 mL/min (90-120)
--- NOTE | 2016-11-16 07:27 | NUR ---
REPORT RECIEVED, INTITIAL ASSESSMENT COMPLETE, PLEASE SEE FLOW SHEETS FOR DETAILS. BED LOW AND LOCKED, CALL LIGHT IN REACH. SCD'S ON AND RUNNING. BP SLIGHTLY ELEVATED WILL SPEAK TO DR GONZALEZ/LUIS ANTONIO ABOUT GETTING HOME BISTOLIC STARTED AGAIN. VSS OTHER THAN BP, WILL CONTINUE TO MONITOR.
--- NOTE | 2016-11-16 09:10 | NUR ---
SELF ORAL CARE AND ASSISTANCE PROVIDED WITH TURNING. VSS AT THIS TIME, WILL CONTINUE TO MONITOR.
--- NOTE | 2016-11-16 10:05 | NUR ---
Is the patient Alert and Oriented? Yes 0 * How many steps to enter\exit or inside your home? 2 0 * PCP DR. MARTINES 0 * [facility] Pread[facility] Environment Home with Family 0 * ADLs Partial Dependent 0 * Partial ADLs (Assistance needed) Ambulation Bathing Dressing Medication Management Toileting 0 * Equipment BIPAP Oxygen Rolling Walker 0 * Other Equipment PATIENT GETS HER O2 AND AND BIPAP FROM [facility]. SHE STATES SHE ALSO HAS A MOTORIZED SCOOTER. 0 * Additional services required to return to the preadmission environment? Yes 0 * Can the patient safely return to the preadmission environment? No 0 * Has this patient been hospitalized within the prior 30 days at any hospital? Yes 0 PATIENT WAS DISCHARGED HOME FROM THE HOSPITAL. SHE WAS ONLY GONE ABOUT 5 HOURS AND WAS IN RESPIRATORY FAILURE AND HAD TO BE INTUBATED. SHE AND HER DAUGHTER STATES THAT SHE WISHES TO GO TO INPATIENT ACUTE REHAB AT DISCHARGE. PATIENT'S PCP IS DR. MARTINES. SHE GETS HER MEDS FROM [facility] ON [address]. SHE STATES SHE HAD HOUSE CALLS PREVIOUSLY BUT DOES NOT WANT THEM AGAIN. SHE HAD HOME HEALTH SEVERAL YEARS AGO BUT DOES NOT RECALL THE NAME. PATIENT HAS O2 AND BIPAP SUPPLIED BY [employer]. SHE HAS A WALKER AND MOTORIZED SCOOTER. THERE ARE 2 STEPS TO ENTER HER HOME.
--- NOTE | 2016-11-16 11:10 | NUR ---
REASSESSMENT COMPLETE, PLEASE SEE FLOW SHEETS FOR DETAILS. ST AT BEDSIDE FOR SWALLOW EVAL, PT CAN HAVE PUREE WITH THIN LIQUIDS, CHANGING MEDS TO CRUSHED WITH PUREE. DR FAIR APPROVED NGT REMOVAL AND THIS WAS DONE AT THIS TIME. ORAL CARE AND TURNING PROVIDED. VSS, WILL CONTINUE TO MONITOR.
--- NOTE | 2016-11-16 13:00 | NUR ---
PT ATE 15% OF HER LUNCH, SHE REQUESTED HER BIPAP, THIS WAS PROVIDED. ORAL CARE AND TURNING PROVIDED. VSS AT THIS TIME, WILL CONTINUE TO MONITOR.
--- NOTE | 2016-11-16 15:00 | NUR ---
REASSESSMENT COMPLETE, PLEASE SEE FLOW SHEETS FOR DETAILS. ASSISTANCE PROVIDED WITH ORAL CARE AND TURNING. DENIES PAIN/NEEDS AT THIS TIME. VSS, WILL CONTINUE TO MONITOR.
[2016-11-16 15:50] LABS: APPEARANCE CLEAR (CLEAR); BILIRUBIN NEGATIVE (NEGATIVE); COLOR YELLOW (YELLOW); GLUCOSE 500 mg/dL (NEGATIVE); KETONE NEGATIVE (NEGATIVE); LEUKOCYTE ESTERASE NEGATIVE (NEGATIVE); NITRITE NEGATIVE (NEGATIVE); PROTEIN NEGATIVE (NEGATIVE); UROBILINOGEN NORMAL (NORMAL)
--- NOTE | 2016-11-16 16:00 | NUR ---
PT TURNED SELF FOR ON AND OFF BED MILLER. COSBY CARE PROVIDED AT THIS TIME. VSS, WILL CONTINUE TO MONITOR.
--- NOTE | 2016-11-16 17:00 | NUR ---
REFUSED DINNER. REFUSED TURNING. STATED SHE WAS COMFORTABLE SHE WAS. VSS AT THIS TIME, WILL CONTINUE TO MONITOR.
--- NOTE | 2016-11-16 18:32 | NUR ---
PT REQUESTED BIPAP, THIS WAS PROVIDED.
--- NOTE | 2016-11-16 19:00 | NUR ---
RECEIVED PATIENT AWAKE AND ALERT IN BED ON BIPAP WATCHING TV, PATIENT IS AO X4. EYES PERRLA @ 4MM WITH BRISK RESPONSE, SCLERA IS WHITE. ORAL/NASAL MUCOSA IS MOIST AND INTACT, TONGUE IS MIDLINE. S1/S2 NOTED WITH PATIENT NSR ON TELEMETRY, RATE IS REGULAR AND RYTHMIC. BREATHING IS SHALLOW AND REGULAR ON BIPAP @ 40%, FINE CRACKLES NOTED IN UPPER LOBE WITH DIMINISHED SOUNDS THROUGHOUT. ABDOMEN IS DISTENDED AND SOFT, BOWEL SOUNDS ACTIVE X4. 16FR COSBY SECURED IN PLACE BY STATLOCK, CLEAR YELLOW URINE NOTED IN COLLECTION BAG. FULL ROM ALL EXTREMITIES WITH SLIGHT WEAKNESS NOTED, ALL PULSES PALPABLE. 20G IV NOTED L AC, PATENT AND SEE FLOW SHEET FOR FLUIDS INFUSING. PATIENT RECEIVED ON BEDPAN, BM PRODUCED 250ML OF SEMI-FORMED BROWN STOOL. REPOSITIONED FOR COMFORT, STATES PAIN 1/10 GENERAL ACHING. NO NEEDS AT THIS TIME, WILL CONTINUE TO MONITOR.
--- NOTE | 2016-11-16 21:00 | NUR ---
PATIENT DAUGHTER CALLED FOR UPDATE, DISCUSSED CURRENT STATUS OF PATIENT AND ANSWERED QUESTIONS. PATIENT LAYING IN BED WITH EYES OPEN ON BIPAP @ 40%, DENIES PAIN OR OTHER NEEDS AT THIS TIME. BED TABLE/CALL LIGHT IN REACH, WILL CONTINUE TO MONITOR.
--- NOTE | 2016-11-16 21:14 | NUR ---
DR CHANO JASSO, DR HOFFMANN CALL BACK, GIVEN UDPATE NEW ORDERS RECIEVED.
--- NOTE | 2016-11-16 23:00 | NUR ---
REASSESSMENT COMPLETE, NO CHANGES FROM PREVIOUS ASSESSMENT. PATIENT RESTING IN BED ON BIPAP WITH EYES CLOSED. BREATHING IS SHALLOW AND REGULAR, FINE CRACKLES NOTED BILATERAL UPPER LOBES WITH DIMINISHED LOWER LOBE. PATIENT ON BIPAP @ 40% NO DIFFICULTIES NOTED. PATIENT STATES PAIN 2/10, REPOSITIONED FOR COMFORT. PATIENT DENIES OTHER NEEDS AT THIS TIME, WILL CONTINUE TO MONITOR.
[2016-11-17] VITALS (24 sets, daily range): BP systolic 90–165; BP diastolic 56–79
--- NOTE | 2016-11-17 01:00 | NUR ---
PATIENT RESTING IN BED WITH EYES CLOSED ON BIPAP @ 40%, BREATHING IS SHALLOW AND RYTHMIC. COMPLETE BED BATH/LINEN CHANGE PERFORMED, COSBY CARE COMPLETED. PATIENT DENIES PAIN OR OTHER NEEDS AT THIS TIME, WILL CONTINUE TO MONITOR.
--- NOTE | 2016-11-17 03:02 | NUR ---
REASSESSMENT COMPLETE, PATIENT RESTING IN BED WITH EYES CLOSED ON BIPAP 40%. FINE CRACKLES NOTED IN UPPER LOBES WITH DIMINISHED LOWER LOBES, BREATHING IS SHALLOW AND RYTHMIC. RESPIRATORY BREATHING TREATMENT STARTED, NO DIFFICULTIES. PATIENT DENIES PAIN OR OTHER NEEDS AT THIS TIME WILL CONTINUE TO MONITOR.
[2016-11-17 04:35] LABS: BASOPHILS 0.2 % (0.0-2.0); EOSINOPHILS 0.8 % (0-7); HEMATOCRIT 35.1 % (36.0-48.0); HEMOGLOBIN 9.9 g/dL (12-16); IMMATURE GRANULOCYTES 0.2 % (0-5); LYMPHOCYTES 4.6 % (15-50); MCH 22.2 pg (26.0-34.0); MCHC 28.2 g/dL (31.0-37.0); MCV 78.9 fL (80.0-100.0); MEAN PLATELET VOLUME 10.4 fL (7.4-10.4); NEUTROPHILS 87.2 % (40-80); PLATELET COUNT 276 10x3/uL (130-400); RBC 4.45 10x6/uL (4.00-5.40); WBC 9.7 10x3/uL (4.8-10.8)
--- NOTE | 2016-11-17 05:00 | NUR ---
PATIENT REQUESTED TO BE PLACED ON BEDPAN, PATIENT DID 50% OF REPOSITIONING ON OWN. SEMI-FORMED BROWN/YELLOW STOOL NOTED IN BEDPAN, PATIENT CLEANED AND REPOSITIONED. DENIES PAIN OR OTHER NEEDS AT THIS TIME, ALL VSS. WILL CONTINUE TO MONITOR.
[2016-11-17 05:10] LABS: ALBUMIN 2.9 g/dL (3.4-5.0); ANION GAP 6.2 mmol/L (8-16); BILIRUBIN - TOTAL 0.4 mg/dL (0.2-1.3); CALCIUM 8.3 mg/dL (8.5-10.1); CARBON DIOXIDE 36.8 mmol/L (21.0-32.0); CREATININE - SERUM 0.9 mg/dL (0.6-1.3); MAGNESIUM - SERUM 2.1 mg/dL (1.8-2.4); PHOSPHOROUS 2.4 mg/dL (2.5-4.9); PROTEIN - SERUM 6.6 g/dL (6.4-8.2)
--- NOTE | 2016-11-17 09:47 | NUR ---
NUTRITION MONITORING & EVAL CHART REVIEWED. TOLERATING REG PUREED DIET. WILL MONITOR DIET ADVANCEMENT, PT PROGRESS. RD FOLLOWING
--- NOTE | 2016-11-17 10:30 | NUR ---
0700 PT AWAKE ALERT AND ORIENTED. ABLE TO FOLLOW COMMANDS. NORMAL SINUS ON MONITOR. PT ON BIPAP 40%. DENIES PAIN AT THIS TIME AND STATES THAT SOB IS IMPROVING. SEE NURSING ASSESSMENT. VITAL SIGNS STABLE.
--- NOTE | 2016-11-17 10:37 | NUR ---
0900 PT UP TO CHAIR WITH PT. TOLERATED MOVEMENT WELL. PT SITTING UP EATING BREAKFAST INDEPENDENTLY AND ABLE TO TAKE MEDS WITHOUT DIFFICULTY. WILL CONTINUE TO MONITOR.
--- NOTE | 2016-11-17 11:31 | NUR ---
1100 PT SITTING UP IN CHAIR AND BREATHING WITHOUT DIFFICULTY. STATES THAT SHE FEELS COMFORTABLE AND BETTER WHEN UP AND MOVING. ON 8L OXYMIZER AT THIS TIME WITH STABLE O2 SAT.
--- NOTE | 2016-11-17 13:50 | NUR ---
Rehab Note- Prescreen order received. Medical record reviewed at this time. The patient continues in ICU on O2 @ 8L/NC, and having difficulty participating with therapy due to blood pressure issues. Will continue to follow the patient at this time. Thank you for this referral! Iris Burns RN Clinical Liaison, [facility]
--- NOTE | 2016-11-17 14:20 | NUR ---
1300 PT STILL UP IN CHAIR. HAD SECOND BM TODAY. BREATHING UNLABORED AT THIS TIME AND O2 SAT >95. WILL CONTINUE TO MONITOR
--- NOTE | 2016-11-17 18:39 | NUR ---
1500 PT STILL UP IN CHAIR AND COMFORTABLE. DENIES PAIN AT THIS TIME. BREATHING REGULAR AND UNLABORED ON 8L NC.
--- NOTE | 2016-11-17 18:42 | NUR ---
1700 NO CHANGES FROM PREVIOUS ASSESSMENT. PT UP TO BEDSIDE COMMODE FOR BM WITH MINIMAL ASSISTANCE
--- NOTE | 2016-11-17 21:40 | NUR ---
PT C/O PAIN. DILAUDID GIVEN PER ORDERS. SEE EMAR FOR DETAILS.
[2016-11-18] VITALS (25 sets, daily range): BP systolic 110–169; BP diastolic 48–111
--- NOTE | 2016-11-18 01:35 | NUR ---
LATE ENTRY: 1929. ASSESSMENT COMPLETE. S1S2. NSR SHOWING ON MONITOR. RR CRACKLES IN UPPER LOBES, DIMINISHED BILATERALLY IN LOWER LOBES. COSBY IN PLACE. PT SITTING IN CHAIR. AAO. DENIES PAIN. WILL CONTINUE TO MONITOR. LATE ENTRY: 2114. COMPLETE LINEN CHANGE. PT RETURNS TO BED WITH MINIMAL ASSISTANCE. GAIT STEADY. LATE ENTRY: 2314. REASSESSMENT COMPLETE. NO CHANGES FROM PREVIOUS ASSESSMENT. WILL CONTINUE TO MONITOR.
--- NOTE | 2016-11-18 01:41 | NUR ---
PT RESTING; EYES CLOSED. CALL LIGHT IN REACH. NO DISTRESS NOTED. VSS. WILL CONTINUE TO MONITOR.
--- NOTE | 2016-11-18 03:00 | NUR ---
REASSESSMENT COMPLETE. NO CHANGES FROM PREVIOUS ASSESSMENT. WILL CONTINUE TO MONITOR.
--- NOTE | 2016-11-18 04:00 | NUR ---
I/O COLLECTED. COSBY EMPTIED. DAILY WEIGHT OBTAINED.
[2016-11-18 05:25] LABS: BASOPHILS 0.2 % (0.0-2.0); EOSINOPHILS 0.6 % (0-7); HEMATOCRIT 33.7 % (36.0-48.0); HEMOGLOBIN 9.4 g/dL (12-16); IMMATURE GRANULOCYTES 0.4 % (0-5); LYMPHOCYTES 6.1 % (15-50); MCHC 27.9 g/dL (31.0-37.0); MCV 78.7 fL (80.0-100.0); MEAN PLATELET VOLUME 10.3 fL (7.4-10.4); MONOCYTES 6.9 % (2-11); NEUTROPHILS 85.8 % (40-80); PLATELET COUNT 276 10x3/uL (130-400); RBC 4.28 10x6/uL (4.00-5.40); RDW 17.1 % (11.5-14.5); WBC 8.5 10x3/uL (4.8-10.8)
[2016-11-18 06:02] LABS: ANION GAP 8.5 mmol/L (8-16); BILIRUBIN - TOTAL 0.32 mg/dL (0.2-1.3); CALCIUM 8.9 mg/dL (8.5-10.1); CARBON DIOXIDE 34.9 mmol/L (21.0-32.0); POTASSIUM - SERUM 3.4 mmol/L (3.5-5.1); PROTEIN - SERUM 6.5 g/dL (6.4-8.2)
--- NOTE | 2016-11-18 07:00 | NUR ---
REPORT RECIEVED, INTITIAL ASSESSMENT COMPLETE, PLEASE SEE FLOW SHEETS FOR DETAILS. COMPLAINS OF PAIN IN BACK AND LEGS, STATES THIS IS CHRONIC PAIN - WILL MONITOR THIS. REFUSING SCD'S BECAUSE OF LEG PAIN. STATES SHE IS EXHAUSTED FROM "GOING TO THE BATHROOM SO MUCH". STATED DR FAIR WOULD ORDER SOMETHING FOR HER DIARRHEA, WILL FOLLOW UP ON THIS. BED LOW AND LOCKED, CALL LIGHT IN REACH. VSS AT THIS TIME, WILL CONTINUE TO MONITOR.
--- NOTE | 2016-11-18 09:00 | NUR ---
PT RESTING, UP TO CHAIR WITH ASSIST BY PHYSICAL THERAPY. VSS AT THIS TIME, DENIES PAIN/NEEDS, WILL CONTINUE TO MONITOR.
--- NOTE | 2016-11-18 10:13 | NUR ---
NUTRITION MONITORING & EVAL PT REMAINS IN ISOLATION. TOLERATING PUREED DIET. UP IN CHAIR. WILL MONITOR DIET ADVANCEMENT, PT PROGRESS. RD FOLLOWING
--- NOTE | 2016-11-18 11:01 | NUR ---
REASSESSMENT COMPLETE, PLEASE SEE FLOW SHEETS FOR DETAILS. DENIES PAIN, NEEDED A BLANKET AND ZOFRON, THESE WERE PROVIDED. VSS AT THIS TIME, WILL CONTINUE TO MONITOR.
--- NOTE | 2016-11-18 13:00 | NUR ---
PT UP IN CHAIR. DENIES PAIN/NEEDS AT THIS TIME. SPOKE WITH DR FAIR AND HE SAID OKAY FOR PT TO GO TO FLOOR. EARLIER IN MORNING DR GONZALEZ STATED IF DR FAIR OKAY WITH PT GOING TO FLOOR, HE WAS.
--- NOTE | 2016-11-18 15:00 | NUR ---
PT UP IN CHAIR STILL. DENIES PAIN/NEEDS AT THIS TIME. CALL LIGHT IN REACH, ARE PERSONAL BELONGINGS. VSS AT THIS TIME, WILL CONTINUE TO MONITOR.
--- NOTE | 2016-11-18 15:30 | NUR ---
PT ASKED ME INTO ROOM TO SPEAK. SHE WAS UPSET AND CRYING. TALKED WITH PT, ADDRESSED HER CONCERNS, SHE STATED SHE WAS BETTER AT THE END OF THE CONVERSATION. MADE SURE THAT SHE WAS OKAY, GAVE HER A HUG, AND ATTENDED TO HER NEEDS. FAMILY WAS IN ROOM AT TIME AND SEEMED HAPPY WITH OUTCOME OF SITUATION. WILL CONTINUE TO MONITOR PT.
--- NOTE | 2016-11-18 15:53 | NUR ---
ASSISTED PT WITH BEDSIDE CAMODE. A BM CLEANED UP.
--- NOTE | 2016-11-18 17:14 | NUR ---
PT UP ON SIDE OF BED EATING DINNER, VSS AT THIS TIME, WILL CONTINUE TO MONITOR.
--- NOTE | 2016-11-18 17:17 | NUR ---
PT SITTING UP IN BED EATING DINNER. DENIES ANY OTHER NEEDS AT THIS TIME. VSS, WILL CONTINUE TO MONITOR.
--- NOTE | 2016-11-18 19:30 | NUR ---
ASSESSMENT COMPLETE. S1S2. RR SHALLOW CRACKLES BILATERALLY IN UPPER LOBES; DIMINISHED BILATERALLY IN LOWER LOBES. PERRLA. AAO. PT CHANGES POSITION IN BED INDEPENDENTLY. CALL LIGHT IN REACH. NO BIPAP AT 40%.
--- NOTE | 2016-11-18 21:20 | NUR ---
PT REQUESTS THAT SCD BE TAKEN OFF. REFUSES TO WEAR THEM.
--- NOTE | 2016-11-18 22:16 | NUR ---
PT C/O NAUSEA. ZOFRAN GIVEN PER ORDERS. SEE EMAR FOR DETAILS.
[2016-11-19] VITALS (12 sets, daily range): BP systolic 117–162; BP diastolic 54–111
--- NOTE | 2016-11-19 00:15 | NUR ---
PT RESTING; EYES CLOSED. NO DISTRESS NOTED. VSS. CALL LIGHT IN REACH. WILL CONTINUE TO MONITOR.
[2016-11-19 05:46] LABS: BASOPHILS 0.4 % (0.0-2.0); EOSINOPHILS 0.9 % (0-7); HEMATOCRIT 34.2 % (36.0-48.0); HEMOGLOBIN 9.7 g/dL (12-16); IMMATURE GRANULOCYTES 0.6 % (0-5); LYMPHOCYTES 7.9 % (15-50); MCH 22.2 pg (26.0-34.0); MCHC 28.4 g/dL (31.0-37.0); MCV 78.4 fL (80.0-100.0); MEAN PLATELET VOLUME 10.4 fL (7.4-10.4); MONOCYTES 9.1 % (2-11); NEUTROPHILS 81.1 % (40-80); PLATELET COUNT 278 10x3/uL (130-400); RBC 4.36 10x6/uL (4.00-5.40); RDW 17.2 % (11.5-14.5); WBC 7.9 10x3/uL (4.8-10.8)
[2016-11-19 06:08] LABS: ALBUMIN 3.1 g/dL (3.4-5.0); ALKALINE PHOSPHATASE 57 U/L (46-116); ALT (SGPT) 33 U/L (10-68); BILIRUBIN - TOTAL 0.28 mg/dL (0.2-1.3); CALC OSMOLALITY 284 mosm/kg (275-300); CALCIUM 9.3 mg/dL (8.5-10.1); CARBON DIOXIDE 34.3 mmol/L (21.0-32.0); CHLORIDE - SERUM 102 mmol/L (98-107); GLUCOSE 156 mg/dL (74-106); POTASSIUM - SERUM 3.8 mmol/L (3.5-5.1); PROTEIN - SERUM 6.8 g/dL (6.4-8.2); SODIUM 141 mmol/L (136-145); UREA NITROGEN 15 mg/dL (7-18); eGFR NON AFRICAN AMERICAN 90 mL/min (90-120)
[2016-11-19 06:11] LABS: CREATININE - SERUM 0.7 mg/dL (0.6-1.3)
--- NOTE | 2016-11-19 09:05 | NUR ---
SPOKE WITH TECHNOLOGY RECRUITER. STATES NO BED ASSIGNMENT FOR TRANSFER AT THIS TIME.
--- NOTE | 2016-11-19 14:00 | NUR ---
Reviewed this patient's chart for IRF. She remains in ICU on high flow . There is mention of moving her out to the floor. Rehab will re-eval and possibily admit on Tuesday. Bryanna Padilla RN CL
--- NOTE | 2016-11-19 15:31 | NUR ---
RECIEVED CALL FROM DAUGHTER DENIA LEGGETT. PASSWORD VERIFIED. DAUGHTER EXPRESSED CONCERNS ABOUT PT'S "BRAIN FUNCTION". [facility] NURSING STAFF HAS BEEN CALLING HER MOTHER NAMES, STARING AT PT FUNNY, POISONED PT'S FOOD AND HAVE TRIED TO "KICK HER OUT OF ICU BECAUSE OF STATS" STATES NURSING STAFF IS KEEPING PT'S DOOR CLOSED DESPITE REQUEST TO KEEP DOOR OPEN. DAUGHTER DENIA DEMANDS THAT "BRAIN TESTING" BE DONE BECAUSE SHE FEELS IF THE PT HAS SUFFERED FROM "NO OXYGEN" SPOKE WITH PT WHO STATES SHE HAD A BAD DREAM AND CALLED HER DAUGHTER TO TALK ABOUT HER DREAM. STATES HER DAUGHTER AND DAUGHTER'S FAMILY "HAVE EMOTIONAL PROBLEMS" AND THAT SHE IS AWARE HER DAUGHTER WOULD BE CALLING. APPOLOGIZES FOR DAUGHTER CALLING AND BEING "DRAMATIC" THAT SHE WAS JUST CHECKING ON HER GRANDDAUGHTERS. DR. GONZALEZ NOTIFIED OF DAUGHTER'S CONCERN. EEG ORDERED.
--- NOTE | 2016-11-19 16:27 | NUR ---
DR. NIEVES NOTIFIED OF CONSULT TO READ EEG.
--- NOTE | 2016-11-19 19:10 | NUR ---
ASSESSMENT IS COMPLETE, SEE FLOWSHEET FOR DETAILS. PATIENT STATES THAT "SHE KNOWS SOMETHING IS GOING ON WITH HER FAMILY AND NOBODY WILL TELL HER ANYTHING" I ASKED IF SHE WANTED ME TO CALL HER DAUGHTER DENIA AND SUGGESTED SHE CALL HER ON HER CELL TO BE SURE EVERYONE WAS SAFE. SHE AGREED AND REQUESTED HER DAUGHTER DENIA TO COME SEE HER. DENIA CALLED ME ON HOSPITAL PHONE AND ASKED IF I WOULD ALLOW HER TO SEE HER MOM IS SHE CAME UP. I AGREED AND TOLD PATIENT DAUGHTER WAS ON WAY. THIS SEEMED TO CALM PATIENT.
--- NOTE | 2016-11-19 20:00 | NUR ---
DAUGHTER DENIA AT BEDSIDE AND TALKING WITH PATIENT. PATIENT STATES SHE FEELS BETTER BUT "DOCTORS WON'T COME SEE HER AND SHE KNOWS SOMETHING IS WRONG WTH HER" I REMINDED HER THAT DOCTORS ROUNDED TODAY AND HAD ALL GOOD REPORTS. THIS SEEMED TO CALM PATIENT. PATIENT STATES UNDERSTANDING AND SAID SHE "WAS SORRY FOR STRESSING AND BEING ANNOYING" I ASSURED HER SHE WAS NOT.
--- NOTE | 2016-11-19 21:00 | NUR ---
MEDS GIVEN, PATIENT MUCH MORE CALM NOW.
--- NOTE | 2016-11-19 23:00 | NUR ---
NO CHANGES WITH PATIENT AT THIS TIME. CPAP ON FOR THE NIGHT AND PATIENT IS RESTING IN BED WATCHING TV. ALERT AND ORIENTED AND VERY CALM. VSS.
--- NOTE | 2016-11-20 01:00 | NUR ---
PATIENT RESTING IN BED WTH EYES CLOSED, BIPAP ON. VSS, WILL CONTINUE TO MONITOR.
[2016-11-20 03:00] VITALS: BP 132/67
[2016-11-20 04:26] LABS: APPEARANCE CLEAR (CLEAR); BACTERIA NONE SEEN /hpf (NONE SEEN); BILIRUBIN NEGATIVE (NEGATIVE); COLOR YELLOW (YELLOW); EPITHELIAL CELLS NSEEN /hpf (0-5); GLUCOSE NEGATIVE (NEGATIVE); KETONE NEGATIVE (NEGATIVE); LEUKOCYTE ESTERASE NEGATIVE (NEGATIVE); NITRITE NEGATIVE (NEGATIVE); PROTEIN TRACE mg/dL (NEGATIVE); RED CELLS - URINE 0-5 /hpf (0-5); SPECIFIC GRAVITY 1.015 (1.005-1.020); UROBILINOGEN NORMAL (NORMAL); WHITE CELLS - URINE NSEEN /hpf (0-5)
--- NOTE | 2016-11-20 05:00 | NUR ---
PATIENT REQUEST TO BE TAKEN OFF BIPAP AND PUT ON OXIMYZER. PATIENT SITTING UP IN BED COMPLAINING OF MILD ANXIETY. WILL CONTINUE TO MONITOR. VSS.
[2016-11-20 05:42] LABS: BASOPHILS 0.2 % (0.0-2.0); EOSINOPHILS 2.2 % (0-7); HEMATOCRIT 36.2 % (36.0-48.0); HEMOGLOBIN 10.1 g/dL (12-16); IMMATURE GRANULOCYTES 0.5 % (0-5); MCH 22.2 pg (26.0-34.0); MCHC 27.9 g/dL (31.0-37.0); MCV 79.6 fL (80.0-100.0); MEAN PLATELET VOLUME 10.1 fL (7.4-10.4); MONOCYTES 10.3 % (2-11); NEUTROPHILS 74.8 % (40-80); PLATELET COUNT 258 10x3/uL (130-400); RBC 4.55 10x6/uL (4.00-5.40); RDW 17.1 % (11.5-14.5); WBC 9.8 10x3/uL (4.8-10.8)
[2016-11-20 05:53] LABS: % SATURATION 14 % (15-55); IRON 26 ug/dl (35-150); TOTAL IRON BIND CAPACITY 181 ug/dl (260-445); UNSAT IRON BIND CAPACITY 155 ug/dl (150-375)
[2016-11-20 06:09] LABS: ALBUMIN 3.2 g/dL (3.4-5.0); ALKALINE PHOSPHATASE 61 U/L (46-116); CALC OSMOLALITY 282 mosm/kg (275-300); CALCIUM 8.8 mg/dL (8.5-10.1); CARBON DIOXIDE 37.8 mmol/L (21.0-32.0); CHLORIDE - SERUM 97 mmol/L (98-107); CREATININE - SERUM 0.8 mg/dL (0.6-1.3); FERRITIN 31 ng/mL (3-244); GLUCOSE 150 mg/dL (74-106); PROTEIN - SERUM 6.8 g/dL (6.4-8.2); SODIUM 140 mmol/L (136-145); THYROID STIMULATING HORMONE 16.97 uIU/mL (0.36-3.74); UREA NITROGEN 16 mg/dL (7-18); eGFR NON AFRICAN AMERICAN 77 mL/min (90-120)
[2016-11-20 06:13] LABS: ALT (SGPT) 48 U/L (10-68); POTASSIUM - SERUM 3.2 mmol/L (3.5-5.1)
[2016-11-20 07:00] VITALS: BP 146/65
--- NOTE | 2016-11-20 09:17 | NUR ---
REPORT CALLED TO AARON BAER.
--- NOTE | 2016-11-20 10:44 | NUR ---
RECEIVED TO ROOM 2227 FROM VIA . ORIENTED TO ROOM AND CALL LIGHT IN REACH. WILL CONTINUE WITH PLAN OF CARE.
--- NOTE | 2016-11-20 10:45 | NUR ---
TRANSFERED TO ROOM 2226 VIA WHEELCHAIR ON OXIMIZER. ALL PERSONAL BELONGINGS PER PT. PT STATES SHE WILL NOTIFY HER FAMILY OF TRANSFER WHEN SHE IS "SETTLED IN AND READY" BIPAP TRANSFERED PER R.T. ORIENTED TO ROOM. PT UP IN CHAIR. C/L IN REACH.
--- NOTE | 2016-11-20 11:05 | NUR ---
JOEY AND PETE SET UP PER PATIENT REQUEST.
--- NOTE | 2016-11-20 11:52 | NUR ---
Rehab Note- Continue to follow the patient at this time. Continues to require 7L High Flow Oxygen at this time, will need to wean for IRF stay for tolerance to therapy. Iris Burns RN Clinical Liaison, Rehab [facility]
[2016-11-20 12:00] VITALS: BP 126/55
--- NOTE | 2016-11-20 13:47 | NUR ---
SPOKE WITH ITALO IN PHARMACY ABOUT NOT HAVING ANY SALINE NASAL SPRAY AVAILABLE. STATES HE WILL HAVE SOME SENT UP.
--- NOTE | 2016-11-20 13:51 | NUR ---
DILAUDID AND ZOFRAN PO PER C/O PAIN AND NAUSEA.
--- NOTE | 2016-11-20 15:32 | NUR ---
MARTÍN AVILA PO. STATES PAIN HAS DECREASED TO A 3 AND NAUSEA IS GONE. DAUGHTER IN ROOM. CALL LIGHT IN REACH.
[2016-11-20 15:37] VITALS: BP 91/53
--- NOTE | 2016-11-20 17:35 | NUR ---
SALINE NASAL MIST STILL HAS NOT BEEN BROUGHT UP TO FLOOR BY PHARMACY. ATTEMPTED TO CALL THEM AGAIN BUT THERE WAS NO ANSWER.
--- NOTE | 2016-11-20 18:22 | NUR ---
NO CHANGES IN INITIAL ASSESSMENT. STILL REFUSES SCDs. CALL LIGHT IN REACH. WILL CONTINUE WITH PLAN OF CARE.
--- NOTE | 2016-11-20 20:02 | NUR ---
REC'D IN BED WITH OXYMIZER IN USE @ 6 L/M. RESP LABORED AT THIS TIME. CAN EXPRESS NEEDS AND WANTS. TURN AND REPOSITONED SELF AB BAUDILIO. DENIES ANY PAIN OR DISCOMFORT AT THIS TIME. ASSESSMENT COMPLETED. C/L IN REACH AT BEDSIDE.
[2016-11-20 20:43] VITALS: BP 150/74
--- NOTE | 2016-11-21 02:07 | NUR ---
RESTING WITH EYES CLOSED, NO ACUTE DISTRESS NOTED, FAMILY IN ROOM, CL IN REACH
--- NOTE | 2016-11-21 03:23 | NUR ---
NO C/O NOTED OR VOICED. CONTINUE TO REST WELL AT THIS TIME. C/L IN REACH AT BEDSIDE.
[2016-11-21 06:17] LABS: BASOPHILS 0.2 % (0.0-2.0); EOSINOPHILS 2.3 % (0-7); HEMATOCRIT 36.4 % (36.0-48.0); HEMOGLOBIN 10.2 g/dL (12-16); IMMATURE GRANULOCYTES 0.5 % (0-5); LYMPHOCYTES 14.4 % (15-50); MCH 22.3 pg (26.0-34.0); MCV 79.5 fL (80.0-100.0); MEAN PLATELET VOLUME 10.8 fL (7.4-10.4); MONOCYTES 9.4 % (2-11); NEUTROPHILS 73.2 % (40-80); RBC 4.58 10x6/uL (4.00-5.40); RDW 17.2 % (11.5-14.5); WBC 10.3 10x3/uL (4.8-10.8)
[2016-11-21 06:21] LABS: PLATELET COUNT 311 10x3/uL (130-400)
[2016-11-21 06:40] LABS: ALBUMIN 3.1 g/dL (3.4-5.0); ALKALINE PHOSPHATASE 64 U/L (46-116); ALT (SGPT) 40 U/L (10-68); CALC OSMOLALITY 279 mosm/kg (275-300); CALCIUM 8.8 mg/dL (8.5-10.1); CHLORIDE - SERUM 95 mmol/L (98-107); CREATININE - SERUM 0.8 mg/dL (0.6-1.3); GLUCOSE 144 mg/dL (74-106); MAGNESIUM - SERUM 1.8 mg/dL (1.8-2.4); PHOSPHOROUS 2.4 mg/dL (2.5-4.9); POTASSIUM - SERUM 3.2 mmol/L (3.5-5.1); PROTEIN - SERUM 6.8 g/dL (6.4-8.2); SODIUM 138 mmol/L (136-145); UREA NITROGEN 14 mg/dL (7-18); eGFR NON AFRICAN AMERICAN 77 mL/min (90-120)
[2016-11-21 06:42] LABS: CARBON DIOXIDE 41.1 mmol/L (21.0-32.0)
--- NOTE | 2016-11-21 07:00 | NUR ---
PT REC'D FROM KEYUR SANTOS. SITTING UP ON SIDE OF BED EATING BREAKFAST. AAOX4. 6L O2 VIA OXYMIZER. EXPIRATORY WHEEZES BILATERALLY, LOWER LOBES DIMINISHED BILAT. ABD ROUND, BOWEL SOUNDS ACTIVE, SOFT TO PALPATION. LE DISCOLORED WITH PALPABLE PEDAL PULSE, COLD TO TOUCH. PT STATES, "I HAVE NEUROPATHY REAL BAD." PT STATES, "I HAD A BAD NIGHT. NO ONE WOULD LISTEN TO ME WHEN I SAID I COULDN'T BREATHE." I APOLOGIZED AND STATED WE WOULD WORK TOGETHER TO TRY AND MAKE TODAY BETTER. SUPPLIED PT WITH ORAL CARE SUPPLIES. BED LOW, CALL LIGHT IN REACH, WILL CPOC.
--- NOTE | 2016-11-21 07:45 | NUR ---
PATIENT SITTING UP ON SIDE OF BED ALERT. NO SIGNS OF DISTRESS NOTED. SIDE RAILS UP X2. BED IN LOW POSITION. CALL LIGHT IN REACH.
[2016-11-21 08:04] VITALS: BP 141/51
--- NOTE | 2016-11-21 08:59 | NUR ---
MORNING MEDS PASSED AT THIS TIME. PT COMPLAINING OF 8/10 RIB PAIN FROM COUGHING. PRN ULTRAM ADMINISTERED. PRN ZOFRAN ADMISTERED DUE TO PT COMPLAINTS OF FEELING SICK AT STOMACH. BED LOW, CALL LIGHT IN REACH, WILL CPOC.
--- NOTE | 2016-11-21 10:34 | NUR ---
PT RESTING IN BED CURRENTLY RECIEVING BREATHING TX. NO COMPLAINTS. STATES PAIN IN RIBS IS GETTING BETTER. RATES IT A 04/23.
--- NOTE | 2016-11-21 11:05 | NUR ---
PT REQUESTING TO BE PUT ON BIPAP. STATES, "I'M JUST WORN OUT TODAY, AND I THINK IT WOULD HELP ME." RESPIRATORY ON FLOOR AND ASSISTED PT WITH BIPAP.
[2016-11-21 11:56] VITALS: BP 113/65
[2016-11-21 15:59] VITALS: BP 137/55
--- NOTE | 2016-11-21 18:44 | NUR ---
COSBY CATHETER CHANGED PER PT REQUEST. ATTEMPTED TO CONVINCE PT TO LEAVE IT OUT, BUT PT STATED, "OH NO MANJULA SAID I'M STILL GOING TO BE ON THE LASIX AND THAT WILL MAKE ME GO LIKE CRAZY AND ILL WEAR OUT." STERILE TECHNIQUE USED. IMMEDIATE RETURN OF 100CC'S OF CLEAR YELLOW URINE. STAT LOCK APPLIED TO RT LEG. BED LOW, CALL LIGHT IN REACH, WILL CPOC.
[2016-11-21 19:00] VITALS: BP 145/60
--- NOTE | 2016-11-21 22:30 | NUR ---
RECIEVED REPORT, PATIENT SITTING UP IN BED WITH BIPAP IN PLACE, ASSESSMENT COMPLETED, NO ACUTE DISTRESS NOTED, DENIES PAIN OR NEEDS AT THIS TIME, SR'S UP X2, CL IN REACH, WILL MONITOR
--- NOTE | 2016-11-21 23:55 | NUR ---
RESTING WITH EYES CLOSED, RESP WITH EASE, NO DISTRESS NOTED, CL IN REACH
[2016-11-22] VITALS: BP 141/73
--- NOTE | 2016-11-22 01:22 | NUR ---
CONTINUES TO REST WITH EYES CLOSED,CPAP IN PLACE, HOB ELEVATED, SR'S UP X2, CL IN REACH
--- NOTE | 2016-11-22 01:32 | NUR ---
UP TO RESTROOM WITH NO DISTRESS, RETURNED TO BED, SR'S UP X2, ALARM ON, CL IN REACH
--- NOTE | 2016-11-22 02:05 | NUR ---
PRN PAIN MED AND BENADRYL GIVEN PER REQUEST, [place] WELL, CL IN REACH
[2016-11-22 04:00] VITALS: BP 160/61
--- NOTE | 2016-11-22 04:54 | NUR ---
ABG RESULTS SHOW CO2 OF 72.7 NOT WEARING BYPAP, RESP THERAPY PLACED BIPAP FOR 30 MINS AND RESULTED 74.6, DR FAIR NOTIFIED, NO NEW ORDERS
[2016-11-22 05:21] LABS: BASOPHILS 0.5 % (0.0-2.0); EOSINOPHILS 0.1 % (0-7); HEMATOCRIT 35.6 % (36.0-48.0); HEMOGLOBIN 9.9 g/dL (12-16); IMMATURE GRANULOCYTES 0.4 % (0-5); LYMPHOCYTES 12.5 % (15-50); MCHC 27.8 g/dL (31.0-37.0); MCV 78.9 fL (80.0-100.0); MEAN PLATELET VOLUME 10.3 fL (7.4-10.4); MONOCYTES 5.3 % (2-11); NEUTROPHILS 81.2 % (40-80); PLATELET COUNT 291 10x3/uL (130-400); RBC 4.51 10x6/uL (4.00-5.40); RDW 17.1 % (11.5-14.5)
[2016-11-22 05:23] LABS: WBC 7.7 10x3/uL (4.8-10.8)
[2016-11-22 05:50] LABS: ALBUMIN 3.2 g/dL (3.4-5.0); ALKALINE PHOSPHATASE 65 U/L (46-116); ALT (SGPT) 28 U/L (10-68); CALC OSMOLALITY 285 mosm/kg (275-300); CALCIUM 9.3 mg/dL (8.5-10.1); CARBON DIOXIDE 38.7 mmol/L (21.0-32.0); CHLORIDE - SERUM 99 mmol/L (98-107); CREATININE - SERUM 0.8 mg/dL (0.6-1.3); GLUCOSE 186 mg/dL (74-106); PROTEIN - SERUM 6.9 g/dL (6.4-8.2); SODIUM 141 mmol/L (136-145); UREA NITROGEN 13 mg/dL (7-18); eGFR NON AFRICAN AMERICAN 77 mL/min (90-120)
--- NOTE | 2016-11-22 08:00 | NUR ---
ASSESSMENT COMPLETE NO ACUTE DISTRESS NTOED VOICES ALL NEEDS TO STAFF FAMILY AT SIDE. O2 PER OXYMIZER COSBY CATHIN PLACE 16 FR NOTED TO BE LEAKING. WTIH COUGHING. IRRITATED AND ANXIOUS ABOUT HAVING A LEAKING CATHETER.
--- NOTE | 2016-11-22 08:00 | NUR ---
PT WITHOUT NEEDS,WITHOUT DISTRESS.CALL LIGHT IN REACH
[2016-11-22 08:07] VITALS: BP 175/86
--- NOTE | 2016-11-22 09:51 | NUR ---
Rehab Note- Patient continues on 8L high flow oxygen & BIPAP at HS & PRN. Will continue to follow the patient at this time. Thank you! Iris Burns RN Clnical Liaison, Rehab [facility]
[2016-11-22 12:09] VITALS: BP 128/53
--- NOTE | 2016-11-22 12:30 | NUR ---
COSBY CATHETER CHANGED OUT HAD PREVIOUSLY REPOSITIONED BALLOON IN BLADDER AND REINFLATED BALLOON. STILL LEAKING COSBY CHANGED PER STERILE TECHNIQUE. PT TOLERATED WELL.
--- NOTE | 2016-11-22 15:00 | NUR ---
PT STILL COMPLAINS OF BLADDER LEAKING AROUND COSBY. NEW ORDER FROM COMPUTER SUPPORT TECHNICIAN TO REPLACE COSBY WITH 18 FR 30 CC BALOON CHANGED PER STERILE TECHNIQUE TOLERATED WELL CLEAR YELLOW URINE NOTED IN TUBING.
[2016-11-22 15:16] LABS: FUNGUS CULTURE RESULT 1 Candida glabrata (())
[2016-11-22 16:37] VITALS: BP 130/54
--- NOTE | 2016-11-22 17:55 | NUR ---
RESTING IN BED WITH NO DISTRESS NOTED IV RESITED TO RIGHT FORARM 22 GA X 1 STICK
[2016-11-22 19:00] VITALS: BP 144/66
[2016-11-23 04:00] VITALS: BP 151/55
--- NOTE | 2016-11-23 04:09 | NUR ---
EYES CLOSED RESPIRATIONS WITH EASE AND UNLABORED. SR UP X2 CALL LIGHT WITHIN REACH.
[2016-11-23 05:45] LABS: BASOPHILS 0.2 % (0.0-2.0); EOSINOPHILS 0.1 % (0-7); HEMATOCRIT 35.3 % (36.0-48.0); IMMATURE GRANULOCYTES 0.6 % (0-5); LYMPHOCYTES 10.6 % (15-50); MCH 22.2 pg (26.0-34.0); MCHC 28.3 g/dL (31.0-37.0); MCV 78.4 fL (80.0-100.0); MONOCYTES 4.2 % (2-11); NEUTROPHILS 84.3 % (40-80); PLATELET COUNT 312 10x3/uL (130-400); RDW 17.3 % (11.5-14.5); WBC 8.3 10x3/uL (4.8-10.8)
[2016-11-23 05:57] LABS: CALCIUM 9.3 mg/dL (8.5-10.1); CREATININE - SERUM 0.9 mg/dL (0.6-1.3); POTASSIUM - SERUM 4.2 mmol/L (3.5-5.1)
[2016-11-23 05:58] LABS: ANION GAP 8.2 mmol/L (8-16)
--- NOTE | 2016-11-23 07:00 | NUR ---
REPORT RECIEVED ASSUMED CARE. PATIENT IN BED WITH IV INTACT. NO COMPLAINTS. CALL LIGHT WITHIN REACH.
[2016-11-23 08:12] VITALS: BP 152/56
--- NOTE | 2016-11-23 09:32 | NUR ---
Rehab Note- The patient continues to require 8L High flow oxygen at this time. Will continue to follow. Iris Burns RN Clinical Liaison, Rehab [facility]
[2016-11-23 11:55] VITALS: BP 130/59
[2016-11-23 16:37] VITALS: BP 145/84
--- NOTE | 2016-11-23 16:40 | NUR ---
PATIENT IV STARTED IN LEFT AC X 1 STICK. 20 G. FOR CTA. TOLERATED WITH SMALL AMOUNT OF PAIN. CALL LIGHT WITHIN REACH.
--- NOTE | 2016-11-23 16:51 | NUR ---
Rehab Note- Prescreen Order received. We have been following the patient since original Prescreen order on 11/17/16, awaiting patient's oxgen to be weaned. Patient noted to be on 8L High Flow Nasal canula per RT on 11/23/16, and noted per Physical Therapy note 11/23/16 O2 at 10L with O2 sat of 94%, after ambulating 15ft O2 sat dropped to 74%, and "bumped her O2 up to 12L". The patient is not able to tolerate the required 3hrs of therapy for IRF stay at this time. Will contine to follow the patient at this time. Thank you for this referral! Iris Burns RN Clinical Liaison, Rehab Care/[facility]
--- NOTE | 2016-11-23 18:55 | NUR ---
PATIENT SITTING UP ON THE SIDE OF THE BED. NO COMPLAINTS. CALL LIGHT WITHIN REACH.
[2016-11-23 19:00] VITALS: BP 97/52
--- NOTE | 2016-11-23 21:10 | NUR ---
ASSESSMENT COMPLETED, NO ACUTE DISTRESS NOTED, DENIES NEEDS, CL IN REACH, WILL MONITOR
--- NOTE | 2016-11-23 21:48 | NUR ---
MEDS GIVEN PER MAR,, TRENTON WELL, RESPOSITIONED IN BED, CL IN REACH
--- NOTE | 2016-11-23 23:48 | NUR ---
RESTING WITH EYES CLOSED, BIPAP IN PLACE, NO DISTRESS NOTED, SR'S UP X2, CL IN REACH
[2016-11-24 01:00] VITALS: BP 147/88
[2016-11-24 04:53] VITALS: BP 150/75
--- NOTE | 2016-11-24 05:05 | NUR ---
IV SITE TO R WRIST AREA INFILTRATED, LOWER ARM EDEMATOUS, DISTAL AREA OF HAND WITH GOOD CAP REFILL, DC'D WITH CATH INTACT, NO DISTRESS NOTED
[2016-11-24 05:49] LABS: BASOPHILS 0.1 % (0.0-2.0); EOSINOPHILS 0.1 % (0-7); HEMATOCRIT 35.7 % (36.0-48.0); HEMOGLOBIN 10.1 g/dL (12-16); IMMATURE GRANULOCYTES 0.7 % (0-5); LYMPHOCYTES 8.1 % (15-50); MCH 22.2 pg (26.0-34.0); MCHC 28.3 g/dL (31.0-37.0); MCV 78.6 fL (80.0-100.0); MEAN PLATELET VOLUME 10.1 fL (7.4-10.4); MONOCYTES 3.6 % (2-11); NEUTROPHILS 87.4 % (40-80); PLATELET COUNT 327 10x3/uL (130-400); RBC 4.54 10x6/uL (4.00-5.40); RDW 17.4 % (11.5-14.5); WBC 9.6 10x3/uL (4.8-10.8)
[2016-11-24 06:13] LABS: ANION GAP 8.1 mmol/L (8-16); CALCIUM 9.1 mg/dL (8.5-10.1); CARBON DIOXIDE 39.5 mmol/L (21.0-32.0); CREATININE - SERUM 0.9 mg/dL (0.6-1.3); POTASSIUM - SERUM 4.6 mmol/L (3.5-5.1)
--- NOTE | 2016-11-24 07:10 | NUR ---
PATIENT RECEIVED SITTING UP ON SIDE OF BED ALERT. NO SIGNS OF DISTRESS NOTED. DENIES NEEDS. BED IN LOW POSITION. CALL LIGHT IN REACH.
[2016-11-24 08:08] VITALS: BP 174/63
--- NOTE | 2016-11-24 08:55 | NUR ---
SITTING UP ON SIDE OF BED ALERT. NO SIGNS OF DITRESS NOTED. SCHEDULED MEDICATION ADMINISTERED WELL PRN ULTRAM. SIDE RAILS UP X2. BED IN LOW POSITION. CALL LIGHT IN REACH.
--- NOTE | 2016-11-24 10:05 | NUR ---
PATIENT SITTING UP ON SIDE OF BED ALERT. NO SIGNS OF DISTRESS NOTED. DENIES NEEDS. BED IN LOW POSITION. CALL LIGHT IN REACH.
--- NOTE | 2016-11-24 10:19 | NUR ---
CM REASSESSMENT NOTE: PATIENT HAS BEEN DENIED FOR IP REHAB. REFERRAL WILL BE SENT TO [facility].
--- NOTE | 2016-11-24 11:40 | NUR ---
COSBY CATH D/C PER ORDER. COSBY CARE PROVIDED PER PROTOCOL. APPROXIMATELY 1000CC REMAINED IN COLLECTION BAG. WELL TOLERATED. WILL CONTINUE TO MONITOR OUTPUT
[2016-11-24 12:19] VITALS: BP 168/76
[2016-11-24] MEDS ORDERED: ALBUTEROL2.5 MG/3 M INH ×2 (12:26→12:27)
[2016-11-24] MEDS ORDERED: BYSTOLIC10 MG PO (12:28)
[2016-11-24] MEDS ORDERED: LOVENOX40 MG/0.4 SC (12:28)
[2016-11-24] MEDS ORDERED: LEXAPRO10 MG PO (12:29)
[2016-11-24] MEDS ORDERED: ULTRAM50 MG PO (12:29)
[2016-11-24] MEDS ORDERED: ATIVAN0.5 MG PO (12:29)
[2016-11-24] MEDS ORDERED: BENZONATATE200 MG PO (12:30)
[2016-11-24] MEDS ORDERED: LASIX40 MG PO (12:30)
[2016-11-24] MEDS ORDERED: PULMICORT0.5 MG/21 INH (12:31)
[2016-11-24] MEDS ORDERED: IMODIUM2 MG PO (12:33)
[2016-11-24] MEDS ORDERED: SALINE NASAL SP45 ML NS (12:33)
[2016-11-24] MEDS ORDERED: ASCORBIC ACID500 MG PO (12:34)
--- NOTE | 2016-11-24 14:04 | NUR ---
PATIENT SITTING UP ON SIDE OF BED ALERT. NO SIGNS OF DISTRESS NOTED. SCHEDULED MEDICATION ADMINISTERED. DENIES NEEDS. BED IN LOW POSITION. CALL LIGHT IN REACH.
--- NOTE | 2016-11-24 15:54 | NUR ---
CM REASSESSMENT NOTE: PATIENT HAS BEEN ACCEPTED TO IP REHAB-AND WILL GO TODAY PER JUDI.
--- NOTE | 2016-11-24 16:45 | NUR ---
PATIENT SITTING UP ON SIDE OF BED VISITING WITH FAMILY. NO SIGNS OF DISTRESS NOTED. BED IN LOW POSITION. CALL LIGHT IN REACH.
--- NOTE | 2016-11-24 18:20 | NUR ---
PATIENT SITTING UP ON SIDE OF BED ALERT. NO SIGNS OF DISTRESS NOTED. ANTICIPATING D/C TO REHAB. BED IN LOW POSITION. CALL LIGHT IN REACH.
--- NOTE | 2016-11-24 18:29 | NUR ---
REPORT CALLED TO REHAB. MARCELO LAU RECEIVED REPORT.
--- NOTE | 2016-11-24 18:44 | NUR ---
PATIENT D/C TO REHAB. TRANSFERRED DOWNSTAIRS VIA WHEELCHAIR WITH STAFF
--- NOTE | 2016-12-05 07:21 | EEG ---
PATIENT:ONOFRE FERNANDEZ DATE OF SERVICE: 11/11/16 MEDICAL RECORD: [id number] DATE OF : 53 LOCATION:D.222 D.MS ADMISSION DATE: 11/11/16 REFERRING PHYSICIAN: INTERPRETING PHYSICIAN: ERIBERTO NIEVES MD DATE OF SERVICE: 11/20/2016 REFERRED BY: Dr. Rai as an inpatient, room number not given. ELECTROENCEPHALOGRAM NUMBER: [id number] DATE OF EXAMINATION: 11/20/2016 to 2:10 p.m. TECHNICAL DATA: This electroencephalographic recording consisted of approximately 20 minutes of data collection utilizing the international 10/20 system of electrode placement and both referential and non-referential montages. Sixteen channels of electrocerebral recording are accompanied by a 17th channel dedicated to the electrocardiographic rhythm and 2 channels of electromyographic recording. Recording is performed in the awake and drowsy states utilizing activation by photic stimulation. ELECTROENCEPHALOGRAPHIC DATA: The awake state comprises of less than 10% of the recorded electrocerebral activity. Electromyographic artifact is prominent and rapid eye movements are seen. It is not clear that the patient is fully aroused from drowsiness. The posterior dominant background consists of a symmetric semi-arrhythmic waxing and waning 6-7 Hz theta activity, which is suppressed by eye opening. The drowsy state comprises the remaining portion of the recorded electrocerebral activity. Electromyographic artifact is diminished and rapid eye movements are not seen. The posterior dominant background is relatively suppressed. Also seen is an intermittent irregular, generalized and symmetric 5-6 Hz theta slowing, which occurs for periods of 1-2 seconds approximately once every 1-2 pages. No focal slowing is identified. No epileptiform discharges are seen. Photic stimulation induces no abnormal change in the recorded electrocerebral activity. INTERPRETATION: Background slow (awake and drowsy). This electroencephalographic recording is indicative of a mild diffuse encephalopathy, though it is not clear that the patient is fully aroused into wakefulness during the recording. The study is consistent with incomplete arousal. TRANSINT:[id number] Voice Confirmation ID: [id number] DOCUMENT ID: [id number] ELECTROENCEPHALOGRAM REPORT [id number] MAISHA FERNANDEZERIBERTO CHIN MD at 0721 CC: [id number] DICTATION DATE: 11/21/16 0804 REQUIREMENTS ANALYST: 11/21/16 0814 DIS IN 11/24/16 [facility] [address] [place] [address]
[2016-12-06 08:09] LABS: FUNGUS MYCOLOGY CULTURE Final report (())
--- NOTE | 2016-12-08 09:12 | OP ---
PATIENT NAME: ONOFRE TURCIOS MEDICAL RECORD: [id number] :53 LOCATION:[facility] [id number] ADMISSION DATE:11/11/16 SURGEON: JAZZ ZURITA MD DATE OF OPERATION: 11/12/2016 PROCEDURE: Fiberoptic bronchoscopy. INDICATION: Ms. Turcios is a 61-year-old female who was just discharged yesterday, came in with acute respiratory distress and now worsening infiltrate, right lower lobe. PROCEDURE IN DETAIL: The fiberoptic bronchoscope was easily passed through the ET tube. The ester was sharp. The right main bronchus subsegment to the right upper lobe, right lower lobe, right middle within normal range. No endobronchial lesion was seen. The left main bronchus was normal, subsegment to the left upper lobe, left lower lobe, lingula with normal. No endobronchial lesion was seen. There is white yellowish secretion bilaterally. There were no severe bronchitic changes. Specimen washing was obtained and sent for routine culture and sensitivity, AFB and fungus and cytology. TRANSINT:[id number] Voice Confirmation ID: [id number] DOCUMENT ID: [id number] JAZZ ZURITA MD at 0912 CC: [id number] DICTATION DATE: 11/12/16 1039 MEDICAL CARE EVALUATION SPECIALIST: 11/12/16 1056 DIS IN 11/24/16 [id number] [place] [address]
--- NOTE | 2016-12-08 09:12 | CN ---
PATIENT NAME:ONOFRE TURCIOS MEDICAL RECORD: [id number] : 53 LOCATION:[id number] ADMIT DATE: 11/11/16 ACCOUNT: [id number] CONSULTING PHYSICIAN: JAZZ ZURITA MD REFERRING PHYSICIAN: JS SALMON M.D. DATE OF CONSULTATION: 11/12/2016 Pulmonary Consultation CONSULT REQUESTING PHYSICIAN: Dr. Js Salmon. REASON FOR CONSULTATION: Vent management, pneumonia, acute exacerbation of chronic obstructive pulmonary disease and acute hypoxic hypercapnic respiratory failure. HISTORY OF PRESENT ILLNESS: Ms. Turcios is a 61-year-old female who was discharged yesterday, doing well, but within 4 hours, the patient got into respiratory distress, 911 was called and the patient was intubated on the field and brought into the hospital. The history was taken mainly by talking to the nursing staff and reviewing the patient's note. REVIEW OF SYSTEMS: Not obtainable. PAST MEDICAL HISTORY: 1. COPD, home oxygen dependent. 2. Associated asthma with overlap syndrome. 3. Chronic hypoxic respiratory failure. 4. Diabetes mellitus. 5. Obstructive sleep apnea. 6. Peripheral neuropathy. 7. Hyperlipidemia. 8. History of chronic bronchitis. 9. Chronic pain syndrome. 10. Degenerative joint disease. 11. Sjogren syndrome. 12. Morbid obesity. 13. Intraoperative nerve sheath tumor, left brainstem diagnosed in 1993. 14. Kidney stone. 15. Recent pneumoperitoneum post-intubation PAST SURGICAL HISTORY: 1. Cholecystectomy. 2. Bladder repair times 3. 3. Arthroscopic knee surgery. 4. Bilateral knee surgery. 5. Ruptured disc in the lumbar spine. 6. Hysterectomy. 7. Left hand and wrist surgery. 8. Salivary gland removed from the neck. 9. Tonsillectomy. ALLERGIES: SHE IS ALLERGIC TO LEVAQUIN, PHENERGAN, TYLOX, TALWIN, SULFA, MORPHINE, CODEINE, ASPIRIN AND SOMA. PRESENT MEDICATIONS: [employer] was reviewed. CONSULT REPORT [id number] ONOFRE TURCIOS PERSONAL AND SOCIAL HISTORY: The patient is an ex-smoker. She is a nondrinker. FAMILY HISTORY: Noncontributory. PHYSICAL EXAMINATION: GENERAL: Now, the patient is orally intubated and sedated. VITAL SIGNS: The blood pressure is 126/68, pulse is 80, respiration is 19, temperature is 97.2. SpO2 is 97% on 40% oxygen SIMV, tidal volume of 550, PEEP of 5. HEENT: Conjunctivae are pink. Sclerae are nonicteric. Pupils equal, round, reactive to light. NECK: Supple, no JVD. CHEST: Excursion is minimal on both sides. There are bilateral crackles. There are wheezing. HEART: Rhythm regular, normal sound, no murmur. ABDOMEN: Soft. Bowel sounds present. No hepatosplenomegaly. RECTAL: Deferred. EXTREMITIES: No cyanosis, no clubbing. There is no pedal edema. SKIN: Warm, normal turgor. CENTRAL NERVOUS SYSTEM: The patient is intubated and sedated. IMAGING: Chest radiograph, there is bilateral increased interstitial marking. There is infiltrate, right lower lobe than the left. OTHER LABORATORY DATA: CBC: WBC of 10.2, hemoglobin 9.6, hematocrit 33.4, the platelet count is 236. Chemistries: Sodium 142, potassium 2.9, chloride 100, bicarbonate is 36.6, creatinine is 1, glucose 226. Albumin is 3.3. The ABG: The pH was 7.33, pCO2 was 68.2, pO2 was 427. This was done on the 100% oxygen while the patient was intubated. IMPRESSION: 1. Hsamn-mz-doathqd hypoxic hypercapnic respiratory failure. 2. Respiratory acidosis secondary to intqo-cb-lcygnds hypoxic hypercapnic respiratory failure. 3. Bilateral pneumonia, right more than the left, most likely consistent with hospital-acquired pneumonia with the patient's recent discharge yesterday. 4. Acute exacerbation of chronic obstructive pulmonary disease. 5. Hypokalemia. 6. Obstructive sleep apnea. 7. Congestive heart failure with chronic diastolic dysfunction. RECOMMENDATION: 1. We will the mechanical ventilation. We will proceed with a fiberoptic bronchoscopy. We will follow the vent bundle for deep venous thrombosis and gastrointestinal stress ulcer prevention. Albuterol/ipratropium nebulizer, Brovana, budesonide nebulizer, methylprednisolone IV, vancomycin and Zosyn IV to cover for hospital-acquired pneumonia, Gram-negative rods as well as questionable methicillin-resistant Staphylococcus aureus. 2. Follow up her labs and chest radiograph. Dr. Salmon, once again, thank you for involving me in the care of Ms. Turcios. TRANSINT:[id number] Voice Confirmation ID: [id number] DOCUMENT ID: [id number] CONSULT REPORT [id number] ONOFRE TURCIOS,JAZZ SELLERS at 0912 CC: JS SALMON M.D. [id number] DICTATION DATE: 11/12/16 0951 DRESSED POULTRY GRADER: 11/12/16 1034 DIS IN 11/24/16 [id number] [place] [id number]
[2016-12-31 14:24] LABS: ACID FAST CULTURE Negative (()); ACID FAST SMEAR Negative (())
== END 2016-11-24 18:45 | DRG 208 ==
LOC: D.ICU → D.ER 21:40 → D.ICU 23:22 → D.MS 11-20 10:39
PROVIDERS: Family Medicine; Family Medicine Adult Medicine; Internal Medicine Pulmonary Disease; ADMIT Family Medicine
PROC: 5A1945Z Respiratory Ventilation, 24-96 Consecutive Hours (ICD-10-PCS; 2016-11-11)
PROC: 0BBB8ZX Excision of Left Lower Lobe Bronchus, Via Natural or Artificial Opening Endoscopic, Diagnostic (ICD-10-PCS; principal; 2016-11-12)
PROC: 0T9B70Z Drainage of Bladder with Drainage Device, Via Natural or Artificial Opening (ICD-10-PCS; 2016-11-12)
DX: J96.22 Acute and chronic respiratory failure with hypercapnia (principal); J18.9 Pneumonia, unspecified organism; I50.33 Acute on chronic diastolic (congestive) heart failure; J44.0 Chronic obstructive pulmonary disease with (acute) lower respiratory infection; J44.1 Chronic obstructive pulmonary disease with (acute) exacerbation; J96.21 Acute and chronic respiratory failure with hypoxia; E11.40 Type 2 diabetes mellitus with diabetic neuropathy, unspecified; I11.0 Hypertensive heart disease with heart failure; G47.33 Obstructive sleep apnea (adult) (pediatric); E66.01 Morbid (severe) obesity due to excess calories; Z68.38 Body mass index [BMI] 38.0-38.9, adult; E87.6 Hypokalemia; D50.9 Iron deficiency anemia, unspecified; I27.2 Other secondary pulmonary hypertension; M35.00 Sjogren syndrome, unspecified; G89.4 Chronic pain syndrome; E78.5 Hyperlipidemia, unspecified; Z99.81 Dependence on supplemental oxygen

== ENCOUNTER 2016-11-24 18:50 | Inpatient (IN) | payer MEDICARE, OTHER ==
[~2016-11-24] VITALS: Ht 162.6 cm; Wt 101.5 kg
[~2016-11-24 18:50] MED LIST changes: +ALBUTEROL2.5 MG/3 M INH; +ASCORBIC ACID500 MG PO; +BENZONATATE200 MG PO; +BYSTOLIC10 MG PO; +LASIX40 MG PO; +LEXAPRO10 MG PO; +LOVENOX40 MG/0.4 SC; +PULMICORT0.5 MG/21 INH; +SALINE NASAL SP45 ML NS; +ULTRAM50 MG PO
[2016-11-24 20:27] VITALS: BP 135/66
--- NOTE | 2016-11-24 20:40 | NUR ---
REMAINS SEATED ON BEDSIDE. O2 @ 5L PER OXYMIZER. INFORMED PATIENT I CONTINUES TO WORK ON HER ADMISSION MEDS AND WILL DELIVER THEM ONCE THEY ARE AVAILABLE.
--- NOTE | 2016-11-24 23:20 | NUR ---
GAVE PATIENT SCHEDULED HS MEDS. GAVE HER ULTRAM 100MG PO FOR BACK AND LEFT LEG PAIN OF LEVEL 7/10. CONTINUED ADMISSION ASSESSMENT.
--- NOTE | 2016-11-25 01:15 | NUR ---
ADMISSION ASSESSMENT AND HISTORY COMPLETE. PATIENT SIGNED ALL ADMISSION DOCUMENTS. REQUESTED ANOTHER UPDRAFT. CONTACTED R/T FOR UPD AND TO AFTERWARD INITIATE BIPAP THERAPY.
--- NOTE | 2016-11-25 02:40 | NUR ---
RESTING IN BED, EYES CLOSED. BIPAP MASK IN PLACE. NO DISTRESS EVIDENT.
--- NOTE | 2016-11-25 04:35 | NUR ---
CONTINUES IN BED, EYES CLOSED. BIPAP MASK IN PLACE. A BIT OF MASK AIR LEAKAGE NOTED ON OCCASION.
[2016-11-25 06:22] LABS: BASOPHILS 0.1 % (0.0-2.0); EOSINOPHILS 0.8 % (0-7); HEMATOCRIT 36.9 % (36.0-48.0); HEMOGLOBIN 10.6 g/dL (12-16); LYMPHOCYTES 16.9 % (15-50); MCH 22.5 pg (26.0-34.0); MCHC 28.7 g/dL (31.0-37.0); MCV 78.3 fL (80.0-100.0); MEAN PLATELET VOLUME 10.3 fL (7.4-10.4); MONOCYTES 6.8 % (2-11); NEUTROPHILS 74.4 % (40-80); PLATELET COUNT 325 10x3/uL (130-400); RBC 4.71 10x6/uL (4.00-5.40); RDW 17.3 % (11.5-14.5)
[2016-11-25 06:32] LABS: WBC 12.5 10x3/uL (4.8-10.8)
--- NOTE | 2016-11-25 06:34 | NUR ---
SWITCHED PATIENT OVER TO OXYMIZER @ 5L FLOW AND TURNED BIPAP OFF. GAVE PATIENT SCHEDULED PO MEDS AND FLUSHED HER RIGHT AC S/L WHICH REMAINS PATENT. DENIES NEEDS. SAYS SHE SLEPT VERY WELL.
[2016-11-25 06:47] LABS: CALCIUM 9.7 mg/dL (8.5-10.1)
[2016-11-25 08:18] VITALS: BP 129/59
--- NOTE | 2016-11-25 09:10 | NUR ---
ANXIOUS AND TOOK AM MEDS WITH EASE. ASK ABOUT ANXIETY MED BUT DECIDED TO TAKE IT LATER.
--- NOTE | 2016-11-25 09:14 | NUR ---
PT REFUSES MIRALAX TODAY. TOOK OTHER 9 AM PILLS. NO OTHER NEED VOICED.
[2016-11-25 10:08] VITALS: Ht 162.6 cm; Wt 101.5 kg
--- NOTE | 2016-11-25 13:18 | NUR ---
PT STATES I AM STILL NAUSEATED AND I DON'T WANT TO EAT RIGHT NOW.
--- NOTE | 2016-11-25 15:04 | NUR ---
RESTING IN BED C/O OF NAUSEA AND PRN ZOFRAN GIVEN. PT REFUSES 1500 MED. CALLIGHT IN REACH.
--- NOTE | 2016-11-25 17:24 | NUR ---
C/O LINCOLN RT RIBS PAIN, PRN PAIN NOTED. CALLIGHT IN REACH.
--- NOTE | 2016-11-25 19:00 | NUR ---
PATIENT IN BED, AWAKE. DENIES NEEDS. O2 PER OXY MIZER @ 5L FLOW AT THIS TIME.
--- NOTE | 2016-11-25 21:35 | NUR ---
PATIENT RESTING QUIETLY WITH BIPAP MASK IN PLACE AND BIPAP DELIVERING THERAPY. APPEARS COMFORTABLE.
--- NOTE | 2016-11-25 22:10 | NUR ---
AWOKE PATIENT FOR ASSESMENT AND HS MEDS. GAVE HER ULTRAM 100MG PO FOR PAIN LEVEL OF 8/10 IN BACK AND LEFT LEG. ASSISTED HER UP TO BR COMMODE TO URINAT AND BACK TO BED. EXCHANGED OXYMIZER UTILIZED FOR MED PASS AND ASSESSMENT, REAPPLYING BIPAP MASK. RESTARTED BIPAP THERAPY.
[2016-11-25 22:54] VITALS: BP 120/52
--- NOTE | 2016-11-26 00:15 | NUR ---
RESTING QUIETLY IN BED, EYES CLOSED.
--- NOTE | 2016-11-26 02:15 | NUR ---
IN BED, EYES CLOSED. CONTINUES ON BIPAP THERAPY
--- NOTE | 2016-11-26 04:35 | NUR ---
RESTING QUIETLY WITH CPAP MASK IN PLACE.
--- NOTE | 2016-11-26 06:49 | NUR ---
GAVE PATIENT SCHEDULED MEDS AND FLUSHED HER RIGHT AC S/L. NOW ON BSC TOILETING AND STARTING TO CHANGED TO [facility] FOR THERAPY.
[2016-11-26 08:15] LABS: BASOPHILS 0.1 % (0.0-2.0); EOSINOPHILS 1.8 % (0-7); IMMATURE GRANULOCYTES 0.7 % (0-5); LYMPHOCYTES 14.7 % (15-50); MCH 22.3 pg (26.0-34.0); MCHC 28.2 g/dL (31.0-37.0); MCV 79.1 fL (80.0-100.0); MEAN PLATELET VOLUME 10.7 fL (7.4-10.4); MONOCYTES 5.6 % (2-11); NEUTROPHILS 77.1 % (40-80); PLATELET COUNT 315 10x3/uL (130-400); RBC 4.93 10x6/uL (4.00-5.40); RDW 17.8 % (11.5-14.5); WBC 13.4 10x3/uL (4.8-10.8)
[2016-11-26 08:38] LABS: CALCIUM 9.4 mg/dL (8.5-10.1); CREATININE - SERUM 1.2 mg/dL (0.6-1.3); POTASSIUM - SERUM 3.7 mmol/L (3.5-5.1)
[2016-11-26 08:41] LABS: ANION GAP 10.7 mmol/L (8-16)
--- NOTE | 2016-11-26 09:55 | NUR ---
SITTING ON SIDE OF THE BED, PRN ZOFRAN GIVEN. REFUSES AM MEDS AT THIS TIME.
[2016-11-26 10:34] VITALS: BP 116/70
--- NOTE | 2016-11-26 11:14 | RHP ---
PATIENT: ONOFRE FERNANDEZ MEDICAL RECORD: [id number] ACCOUNT: [id number] LOCATION:[facility].1111 : 53 ADMISSION DATE: 11/24/16 REHABILITATION HISTORY AND PHYSICAL EXAMINATION POST ADMISSION PHYSICIAN EXAMINATION Post-admission Physical Exam and History and Physical DATE OF ADMISSION TO THE REHAB: 11/24/2016 ADMITTING DIAGNOSES: Chronic obstructive pulmonary disease induced myopathy, [id number] hypoxic hypercapnic respiratory failure and bilateral pneumonia. HISTORY OF PRESENT ILLNESS: The patient is a 61-year-old female patient admitted to inpatient rehab for chronic obstructive pulmonary disease and myopathy with recent ygtit-gb-zqgwexg hypoxic hypercapnic respiratory failure. She was discharged on November 11, refuse inpatient rehab stay at that time, wanting to discharge home because she felt she was doing well, but within 4 hours was back in respiratory distress, came back in via EMS, and was intubated. The patient has chronic obstructive pulmonary disease and oxygen dependent with BiPAP and CPAP at bedtime while at home. She was recently admitted on October 28 with pneumoperitoneum and required mechanical ventilation on admit also. On this admit on November 11, the patient was in ICU from November 11 to November 20, required mechanical ventilation from November 11 to November 15. The patient had been participating in physical therapy. She is needing increased oxygen. She has walked a 64 feet with 6 liters via nasal cannula. The patient requires 4-5 liters via nasal cannula at home. The patient will be receiving speech therapy also for oropharyngeal dysphagia since extubation and being taken off the ventilator. PAST MEDICAL HISTORY: Include congestive heart failure, peripheral neuropathy, chronic obstructive pulmonary disease, asthma, BiPAP and CPAP use at home, chronic bronchitis, chronic hypoxic respiratory failure, obstructive sleep apnea, iron deficiency anemia, hyperlipidemia, diabetes, hypertension, hypokalemia, chronic pain, degenerative joint disease, Sjogren syndrome, morbid obesity. PAST MEDICAL HISTORY: Significant for chronic obstructive pulmonary disease, asthma, chronic hypoxic respiratory failure, diabetes, obstructive sleep apnea, peripheral neuropathy, hyperlipidemia, chronic bronchitis, chronic pain, degenerative joint disease, Sjogren syndrome, morbid obesity. PAST SURGICAL HISTORY: Includes cholecystectomy, bladder repair times 3, arthroscopic knee surgery, bilateral knee surgery, ruptured disc in lumbar region, hysterectomy, left hand and wrist surgery, salivary gland removed from the neck and tonsillectomy. ALLERGIES: SULFA DRUGS, SOMA, CODEINE, LEVAQUIN, MORPHINE, OXYCODONE, PROMETHAZINE, AND MUSHROOMS. CURRENT MEDICATIONS: Include Synthroid 150 mcg daily, potassium chloride 20 mEq every other day, Daliresp 500 mcg daily, Protonix 40 mg b.i.d., metformin 500 mg b.i.d. with meals, Synthroid 100 mcg daily, Floranex daily. She is on furosemide 40 mg b.i.d., Lexapro 10 mg daily, Lovenox 40 mg subcutaneous daily, HISTORY AND PHYSICAL [id number] ONOFRE FERNANDEZ tramadol 100 mg q.4 hours p.r.n., Pravachol 20 mg at bedtime, Zofran p.r.n., Bystolic 10 mg b.i.d., Singulair 10 mg at bedtime. She is on Ativan 0.5 mg t.i.d. p.r.n., Imodium as needed for diarrhea. She is on Lantus 35 units at bedtime, Plaquenil 200 mg b.i.d., Benadryl p.r.n. She is on Pulmicort 0.5 mg b.i.d. Tessalon perles 200 mg t.i.d., vitamin C 500 mg b.i.d., Brovana 15 mcg b.i.d., Ventolin updrafts as needed and polyethylene glycol 17 grams in 8 ounces of water daily. HABITS: No current alcohol or tobacco use. FAMILY HISTORY: Noncontributory. SOCIAL HISTORY: The patient hopes to return back home and get back to her prior level of functioning. REVIEW OF SYSTEMS: GENERAL: Does complain of some weakness. HEENT: Denies cold, cough, or congestion. CARDIOVASCULAR: Denies any chest pain. LUNGS: Does not complain of any shortness of breath, is not normally her status quo. PHYSICAL EXAMINATION: VITAL SIGNS: Stable. She is afebrile. GENERAL: Somewhat obese female in no acute distress, alert upon exam. HEENT: Normocephalic and atraumatic. Mucosa is moist. NECK: Supple. No lymphadenopathy. LUNGS: Coarse breath sounds bilaterally with decreased breath sounds in both bases. CARDIOVASCULAR: Regular rate and rhythm. ABDOMEN: Benign. EXTREMITIES: No clubbing, cyanosis or edema. NEUROLOGIC: Intact. LABORATORY DATA: Her white count 12.5, H&H of 10.6 and 36.9, and her platelet count is 325. Her sodium is 139, potassium is 4.0, BUN and creatinine of 23 and 1.1, and blood sugar noted to be 130. ASSESSMENT: This is a 61-year-old female patient admitted to rehab with a working diagnosis of chronic obstructive pulmonary disease induced myopathy. The patient has potential to make improvement. We instituted the following multidisciplinary therapies including to, but not limited to physical, occupational, respiratory, speech, nutritional services, prosthetics and orthotics. Given her complex condition and risk for more complications, rehabilitation services cannot be provided at a low level of care such as a correction facility. PLAN: 1. Admit to [facility] rehab for intensive inpatient therapy to include the following disciplines: A. Physical therapy to improve gait, all transfer skills and bed mobility to a modified independent level. B. Occupational therapy to improve activities of daily living to a modified independent level. C. Case management to assist with discharge planning and placement options. HISTORY AND PHYSICAL [id number] ONOFRE FERNANDEZ Nutrition to assist with nutritional needs. E. Rehabilitation nursing to assist in monitoring the patient's underlying medical conditions and to assist with any type of bowel or bladder management. 2. The patient's current medications and medical care will be continued. 3. The patient will be placed on standard fall precautions. 4. The patient's estimated length of stay is approximately 10-14 days. 5. Discuss this patient during care team staff meeting this week. TRANSINT:[id number] Voice Confirmation ID: [id number] DOCUMENT ID: [id number] CONG MARTINES MD at 1114 CC: [id number] DICTATION DATE: 11/25/16 0828 MEDICAL INFORMATION SPECIALIST: 11/25/16 0941 ADM IN [facility] [address] [place] [address]
--- NOTE | 2016-11-26 13:28 | NUR ---
ASSISTED PT TO BEDSIDE COMMODE AND VOIDED YELLOW URINE. CALLIGHT IN REACH.
--- NOTE | 2016-11-26 15:08 | NUR ---
SITTING IN WHEELCHAIR IN GYM WORKING WITH ILEANA BARBA. NO NAUSEA NOTED.
--- NOTE | 2016-11-26 16:42 | NUR ---
CALL FOR ASSISTANCE AND C/O BACK PAIN ,PRN MED GIVEN.
[2016-11-26 21:37] VITALS: BP 117/44
--- NOTE | 2016-11-26 21:45 | NUR ---
PT TAKES MEDICATION WITHOUT DIFFICULTY, PT PREFERS MEDICATION IN APPLESAUSE. PT DIDN'T WANT TO TAKE LANTUS RELATED TO HER FSBS RESULTS. PT DOESN'T APPEAR TO EXACTLY KNOW WHAT HER INSULIN REGIME WAS AT HOME. LOWER FEET BILT COOL TO TOUCH AND PURPLISH COLOR, PT CONFIRMS SHE HAS PVD.
--- NOTE | 2016-11-26 22:30 | NUR ---
PT REQUESTING BIPAP MASK SHE IS TIRED, SITTING STRAIGHT UP IN BED, WILL CONTACT RT. PT DENIES ANY OTHER NEEDS AT THIS TIME.
--- NOTE | 2016-11-27 02:30 | NUR ---
PT REQUESTING BREATHING TREATMENT, PT CONCERNED WITH BIPAP FUNCTION OF BEEPING - RT NOTIFIED.
--- NOTE | 2016-11-27 07:00 | NUR ---
Pt. was received at the beginning of this shift in bed with eyes closed. Bi-pap machine going. No signs of any discomfort or distress. Vital signs: Temp. 98.3, pulse 71, resp. 16, b/p 104/51, 02Sat. 96%. Call light in reach. Will be monitoring pt. throughout this shift and following her plan of care. Assisting pt. with all adl's prn.
--- NOTE | 2016-11-27 09:50 | NUR ---
Pt. was in therapy and complained of feeling nauseated. She received Zofran 2mg IV push at 0950. Will continue to observe.
[2016-11-27 13:43] VITALS: BP 104/51
--- NOTE | 2016-11-27 14:35 | NUR ---
Pt. is resting in bed at this time and requesting Zofran 2mg IV push for nausea again. She will receive this at this time. Will continue to monitor.
--- NOTE | 2016-11-27 16:20 | NUR ---
Pt. is resting in bed with bi-pap machine on and is requesting pain medication for back pain of a 7. She received Ultram 100mg at this time. Will continue to monitor for comfort level.
[2016-11-27 19:39] VITALS: BP 124/76
--- NOTE | 2016-11-27 19:51 | NUR ---
PT STATES SHE IS STILL NAUSEATED, DOESN'T FEEL GOOD WOULD LIKE ZOFRAN WHEN SHE CAN.
--- NOTE | 2016-11-28 01:06 | NUR ---
pt resting quielty, bipap on, no alarms sounding, no s/s of acute distress.
[2016-11-28 07:00] VITALS: BP 109/58
--- NOTE | 2016-11-28 13:38 | NUR ---
Dr. Jaimes rounded and wrote new orders. Pt. states she is allergic to Phenergan but new order is for Compazine. Dr. Jaimes ok's pt to have Compazine. Pt. states she has taken Compazine in the past and doesn't remember having a reaction to it. Will monitor for any reaction. Pt agrees to take the Compazine prn for nausea.
--- NOTE | 2016-11-28 17:43 | NUR ---
Pt. asked for Ultram 100mg at 12:40pm, Tussinex at 1425, Compazine 10mg at 5:20pm for nausea before they brought her her supper. Will continue to monitor and assist with adl's as needed. Chest x-ray taken an hour ago.
--- NOTE | 2016-11-28 21:21 | NUR ---
RELAYED REPORT OF IMPROVEMENT SEEN ON XRAY, PT DOESN'T THINK IT IS IMPROVING.
[2016-11-28 22:05] VITALS: BP 122/90
--- NOTE | 2016-11-29 01:16 | NUR ---
BIPAP ON, RESPIRATIONS REGULAR AND UNLABORED, NO S/S OF ACUTE DISTRESS.
[2016-11-29 06:22] LABS: BASOPHILS 0.2 % (0.0-2.0); EOSINOPHILS 2.2 % (0-7); HEMATOCRIT 34.1 % (36.0-48.0); HEMOGLOBIN 9.6 g/dL (12-16); IMMATURE GRANULOCYTES 0.5 % (0-5); LYMPHOCYTES 8.9 % (15-50); MCH 22.3 pg (26.0-34.0); MCHC 28.2 g/dL (31.0-37.0); MCV 79.3 fL (80.0-100.0); MONOCYTES 8.3 % (2-11); NEUTROPHILS 79.9 % (40-80)
[2016-11-29 06:37] LABS: PLATELET COUNT 237 10x3/uL (130-400)
--- NOTE | 2016-11-29 06:40 | NUR ---
PT LIKES TO USE BEDSIDE COMMODE AND TRANSFERRING OVER, REMOVED BSC FROM BEDROOM PT NEEDS TO MOVE TOWARD TRANSFERRING TO W/C AND TOILET/BATHROOM TO PROMOTE STRENGTHENING AND ADL'S. PT NOT HAPPY.
[2016-11-29 06:41] LABS: CALCIUM 8.8 mg/dL (8.5-10.1); CREATININE - SERUM 1.3 mg/dL (0.6-1.3); POTASSIUM - SERUM 3.2 mmol/L (3.5-5.1)
[2016-11-29 06:48] LABS: ANION GAP 11.2 mmol/L (8-16)
[2016-11-29 09:03] VITALS: BP 99/51
--- NOTE | 2016-11-29 20:05 | NUR ---
PT. IN BED WITH HOB UP FOR COMFORT SITTING ON THE SIDE OF HER BED WITH HER OXIMIZER ON. ASSESSMENT COMPLETED. PT. STATED THAT SHE THINKS SHE IS GOING TO HAVE A BAD NIGHT TONIGHT BECAUSE OF HER BREATHING PROBLEMS AND WOULD I CHECK ON HER IF SHE NEEDED. REASSURED PT. THAT I WOULD BE MORE THEN GLAD TO CHECK HER AT ANY TIME SHE NEEDED IT FOR ANY REASON. PT. C/O HANDS SHAKING AND SAID SHE JUST HAD A BREATHING TX. FROM RT. INFORMED PT. THAT MORE THAN LIKELY IT WAS FROM THE MEDS IN THE BREATHING TX. PT. DIDN'T THINK SO AND THOUGHT IT HAD TO DO WITH THE FACT THAT SHE FOUND HER O2 TUBING LOOSE AT THE 2ND CONNECTION. PT. HAS NO VOICED NEEDS AT THIS TIME AND CALL LIGHT IS WITHIN REACH.
[2016-11-29 20:30] VITALS: BP 115/53
--- NOTE | 2016-11-30 04:11 | NUR ---
PT. IN BED WITH HOB UP FOR COMFORT AND WEARING HER BI-PAP SINCE HER LAST BREATHING TX. EYES CLOSED AND RESP. EVEN AND CALL LIGHT WITHIN REACH.
--- NOTE | 2016-11-30 08:05 | NUR ---
SITTING ON THE SIDE OF THE BED.ASSESSMENT COMPLETED.O2 INTACT VIA OXIMIZER 5L/MIN.DENIES NEEDS AT PRESENT TIME.CL IN EASY REACH,BED IN LOW POSITION.
[2016-11-30 08:34] VITALS: BP 148/60
--- NOTE | 2016-11-30 14:18 | NUR ---
Nutrition Follow Up: Chart reviewed. Pt is eating 47% of Regular diet. No new wt to assess. +BM 11/28/16. Labs noted. Meds: Lantus, Vit C, Reglan, Metformin, Lasix. Rec continue current diet. RD following.
--- NOTE | 2016-11-30 20:00 | NUR ---
PT. IN BED WITH HOB UP FOR COMFORT WITH OXIMIZER IN PLACE AT 5L/MIN. ASSESSMENT COMPLETED. PT. HAS NO NEEDS AT THIS TIME BUT WILL CALL WHEN SHE WANTS HER BI-PAP PLACED. CALL LIGHT WITHIN REACH.
[2016-11-30 22:22] VITALS: BP 145/73
--- NOTE | 2016-11-30 23:44 | NUR ---
PT. IN BED WITH HOB UP FOR COMFORT WITH B-PAP ON THIS TIME. EYES ARE CLOSED AND RESP. EVEN WITH CALL LIGHT WITHIN REACH FOR ANY NEEDS SHE MAY HAVE.
--- NOTE | 2016-12-01 06:19 | NUR ---
PT. IN BED WITH HOB UP FOR COMFORT WITH BI-PAP ON WITH EYES CLOSED AND RESP. EVEN. CALL LIGHT WITHIN REACH.
[2016-12-01 06:32] LABS: BASOPHILS 0.1 % (0.0-2.0); EOSINOPHILS 1.6 % (0-7); HEMATOCRIT 32.1 % (36.0-48.0); HEMOGLOBIN 9.2 g/dL (12-16); IMMATURE GRANULOCYTES 0.6 % (0-5); LYMPHOCYTES 9.4 % (15-50); MCH 22.5 pg (26.0-34.0); MCHC 28.7 g/dL (31.0-37.0); MCV 78.5 fL (80.0-100.0); NEUTROPHILS 78.3 % (40-80); PLATELET COUNT 220 10x3/uL (130-400); RBC 4.09 10x6/uL (4.00-5.40); RDW 18.3 % (11.5-14.5); WBC 8.9 10x3/uL (4.8-10.8)
[2016-12-01 06:46] LABS: CALCIUM 9.1 mg/dL (8.5-10.1); CREATININE - SERUM 1.3 mg/dL (0.6-1.3)
[2016-12-01 07:27] LABS: ANION GAP 7.4 mmol/L (8-16); CARBON DIOXIDE 42.3 mmol/L (21.0-32.0)
[2016-12-01 07:28] LABS: POTASSIUM - SERUM 2.7 mmol/L (3.5-5.1)
--- NOTE | 2016-12-01 08:00 | NUR ---
BIPAP REMOVED.SITTING ON SIDE OF BED.BREAKFAST GIVEN.ASSMT COMPLETED.
[2016-12-01 08:27] VITALS: BP 117/66
--- NOTE | 2016-12-01 12:00 | NUR ---
DENIES NEEDS.INDEPENDENT IN ROOM.
--- NOTE | 2016-12-01 16:00 | NUR ---
FAMILY VISITING.CL IN REACH.
--- NOTE | 2016-12-01 16:28 | NUR ---
CARE TEAM MEETING: PATIENT TENATIVE DISCHARGE DATE IS 12/07/16. PATIENT HAS WALKER, O2 AND BIPAP AT HOME. PROVIDER IS [facility]. PCP IS DR. MARTINES. WILL CONTINUE TO FOLLOW WITH PATIENT UNTIL DISCHARGED
--- NOTE | 2016-12-01 19:00 | NUR ---
PATIENT SEATED ON BEDSIDE. DENIES NEEDS.
[2016-12-01 19:30] VITALS: BP 111/55
--- NOTE | 2016-12-01 19:30 | NUR ---
VS AND ASSESSMENT COMPLETE. HAS NO C/O AT THIS TIME.
--- NOTE | 2016-12-01 22:10 | NUR ---
GAVE PATIENT HS MEDS PO, WELL SCHEDULED LANTUS INSULIN, 35 UNITS, BY SC INJ. IN LUQ ABDOMEN. WANTS TO SIT UP AWHILE LONGER. DENIES DISCOMFORT.
--- NOTE | 2016-12-02 00:15 | NUR ---
ASSISTED PATIENT TO EMPLACE BIPAP MASK AFTER SHE RETURNED FROM .
--- NOTE | 2016-12-02 02:00 | NUR ---
R/T JUST INITIATED UPD TREATMENT ON PATIENT. PATIENT HAS NO C/O AT THIS TIME.
--- NOTE | 2016-12-02 04:30 | NUR ---
RESTING QUIELTY IN BED, EYES CLOSED. CONTINUES WITH BIPAP MASK IN PLACE. NO DISTRESS EVIDENT.
--- NOTE | 2016-12-02 06:00 | NUR ---
RESTING QUIETLY AT PRESENT WITH BIPAP MASK ON. R/T WILL BE STARTING UPD TREATMENT SHORTLY.
[2016-12-02 06:51] LABS: CALCIUM 9.1 mg/dL (8.5-10.1)
[2016-12-02 07:02] LABS: ANION GAP 5.5 mmol/L (8-16); CREATININE - SERUM 1.8 mg/dL (0.6-1.3)
[2016-12-02 07:03] LABS: CARBON DIOXIDE 42.2 mmol/L (21.0-32.0); POTASSIUM - SERUM 2.7 mmol/L (3.5-5.1)
--- NOTE | 2016-12-02 08:00 | NUR ---
SHIFT ASSMT COMPLETED.DENIES NEEDS.CL IN REACH.BREAKFAST GIVEN.
[2016-12-02 09:32] VITALS: BP 121/65
--- NOTE | 2016-12-02 12:00 | NUR ---
SITTING UP EATING.COMPAZINE GIVEN.CL IN REACH.
--- NOTE | 2016-12-02 16:00 | NUR ---
RESTING QUIETLY.CL IN REACH.STATES HAVING ISSUES OF NAUSEA SINCE ADMISSION WITH NO REAL RELIEF FROM COMPAZINE.WILL DISCUSS WITH .STATED REINALDO DID NOT GET RID OF IT EITHER.
[2016-12-02 19:00] VITALS: BP 117/58
--- NOTE | 2016-12-02 19:10 | NUR ---
PATIENT SITTING UP IN BED WITH NASAL CANNULA IN PLACE @ 5L O2 FLOW.
--- NOTE | 2016-12-02 19:45 | NUR ---
RESPORT SHE IS SOB. PULSEOX IS 98%. EMPLACED BIPAP MASK WITH 5L O2 PLUMBED IN CIRCUIT. AFTER A FEW MINUTES, PATIENT STATED, "SOMETHING'S WRONG, I'M NOT GETTING ENOUGH AIR." COULD NOT DETERMINE ANY KIND OF PROBLEM WITH BIPAP BUT REMOVED MASK AND PLACED PATIENT BACK ON NASAL CANNULA @ 5L AND PAGED R/T.
--- NOTE | 2016-12-02 20:50 | NUR ---
R/T COULD FIND NO PROBLEMS WITH BIPAP AND PATIENT CONTINUES TO RUN 98% PULSEOX. DISCUSSED WITH HER THAT SHE IS PROBABLY A BIT ANXIOUS SHE DOES NOT HAVE THE FEELING OF SECURITY THAT SHE HAD WITH HER COMPATIBLE ROOMMATE, WHO DISCHARGED EARLIER TODAY. GAVE PATIENT ATIVAN 0.5MG FOR ANXIETY AND ULTRAM 100MG FOR PAIN LEVEL OF 8/10 IN HER BACK AND LEFT LEG. FSBS 151. GAVE PATIENT SCHEDULED LANTUS INSULIN, 35 UNITS, BY SC INJ IN LUQ ABDOMEN.
--- NOTE | 2016-12-02 22:10 | NUR ---
RESTING IN BED, HOB UP 30 DEGREES, EYES CLOSED, AND HAS DONE SO SINCE ABOUT 2129 HRS. CONTINUES ON NASAL CANNULA @ 5L FLOW. ADEBAYO SAID SHE WOULD CALL WHEN SHE WANTS PLACED ON BIPAP.
--- NOTE | 2016-12-03 00:15 | NUR ---
RESTING QUIETLY IN BED, EYES CLOSED. CONTINUES ON 5L O2 PER N/C.
--- NOTE | 2016-12-03 02:15 | NUR ---
CONTINUES IN BED, EYES CLOSED. RESTING QUIETLY WITH O2 PER NC @ 5L FLOW.
--- NOTE | 2016-12-03 04:35 | NUR ---
RESTING IN BED, EYES CLOSED. RESPIRATIONS QUIET AND UNLABORED. HAS DECLINED BIPAP THROUGH THE NIGHT WHENEVER R/T HAS TREATED HER.
--- NOTE | 2016-12-03 07:00 | NUR ---
Pt. was received at the beginnning of this shift sitting on the side of the bed. Alert and oriented x 3. 02 per nc going at 5L/min. Call light in reach. No signs of any discomfort or distress.
[2016-12-03 10:24] VITALS: BP 135/72
--- NOTE | 2016-12-03 15:49 | NUR ---
Pt. asked for pain medication around 0830 and received Tramadol 100mg per request. She asked for nausea medication around 10:20 and received Compazine 10mg at that time. She has done therapy today and participated well. Continuing to monitor and give assist prn.
[2016-12-03 19:39] VITALS: BP 131/69
--- NOTE | 2016-12-03 19:58 | NUR ---
PT REQUESTED BREATHING TREATMENT, OXYGEN PULSE OX 98 PERCENT, PT STATED WOULD LIKE ATIVAN AND PAIN MEDICATION WITH PM MEDICATION. PT ALSO REQUESTED THAT AT 9A WOULD LIKE TO HAVE A HOT PACK FROM PT, SHE STATES THAT MADE A DIFFERENCE IN HER DAY TODAY. WILL PASS ON IN AM REPORT.
--- NOTE | 2016-12-03 22:25 | NUR ---
PT STATES SHE AWOKE AND HER FACE FELT NUMB FROM BIPAP MASK, READJUSTED MASK, PT PUT ON NC TO ALLOW HER FACE TO REST.
--- NOTE | 2016-12-03 23:55 | NUR ---
PT REQUESTED ASSISTANCE TO PLACE BIPAP MACHINE ON.
--- NOTE | 2016-12-04 02:51 | NUR ---
PT RESTING IN BED DOING A UPDRAFT TX. NO ACUTE DISTRESS NOTED.
--- NOTE | 2016-12-04 05:16 | NUR ---
pt requested off of bipap, c/o of difficulty breathing and requested breathing treatment. respiratory administed breathing treatment and encouraged pt to continue with bipap mask and machine on.
--- NOTE | 2016-12-04 06:25 | NUR ---
pt has bipap on, awoke, pt took her meds and opted to keep her bipap off.
[2016-12-04 09:00] VITALS: BP 102/65
--- NOTE | 2016-12-04 09:35 | NUR ---
SITTING ON SIDE OF THE BED MILD ANXIETY. TOOK ALL MORNING PILLS. NO OTHER NEEDS VOICED.
--- NOTE | 2016-12-04 11:33 | NUR ---
SITTING IN WHEELCHAIR IN GYM WITH HOT PACK TO BACK.
--- NOTE | 2016-12-04 13:39 | NUR ---
RESTIONG IN BED WITH O2 ON 5L/NC.
--- NOTE | 2016-12-04 15:41 | NUR ---
RESTING IN BED WITHOUT ANY CONCERNS VOICED.
--- NOTE | 2016-12-04 17:30 | NUR ---
SITTING ON SIDE OF THE BED EATING DINNER. BLOOD SUGAR 107 TONIGHT, TOOK PILLS WITH EASE.
[2016-12-04 19:38] VITALS: BP 129/66
--- NOTE | 2016-12-04 20:00 | NUR ---
pt inquries on medication administration, reviewed medication with patient. pt states she will be ready for medications as she is tired and wants to go to sleep.
--- NOTE | 2016-12-05 01:58 | NUR ---
pt resting quietly in bed, no s/s of acute distress. pt is conversive, smiles. denies difficulty with breathing.
--- NOTE | 2016-12-05 06:11 | NUR ---
AWAKE, STATES SLEPT VERY WELL LAST NIGHT. MEDICATED FOR PAIN.
--- NOTE | 2016-12-05 08:15 | NUR ---
PT RESTING IN BED WITH EYES OPEN CALL LIGHT IN REACH NO PROBLEMS WILL MONITER
--- NOTE | 2016-12-05 12:00 | NUR ---
PT UP IN BED EATING LUNCH TOLERATING WELL CALL LIGHT IN REACH WILL MONITER
--- NOTE | 2016-12-05 18:26 | NUR ---
PT RESTING IN BED WITH EYES OPEN CALL LIGHT IN REACH NO PROBLEMS WILL MONITER
[2016-12-05 19:30] VITALS: BP 113/50
--- NOTE | 2016-12-05 20:00 | NUR ---
PT TOOK HS MEDS WITHOUT DIFFICULTY. PT GIVEN PRN TRAMADOL AND ATIVAN AT THIS TIME BY PT REQUEST. PT PLACED ON BIPAP AND STATES NO FURTHUR NEEDS AT THIS TIME. BED LOW. CL INR EACH.
--- NOTE | 2016-12-05 23:49 | NUR ---
PT RESTING, EYES CLOSED. BED LOW. CL IN REACH. WCTM.
--- NOTE | 2016-12-06 01:45 | NUR ---
PT RESTING, EYES CLOSED. BED LOW. CL IN REACH. WCTM.
--- NOTE | 2016-12-06 06:45 | NUR ---
PT TOOK AM MEDS WITHOUT DIFFICULTY. PT STATES SHE IS JUST GOING TO WEAR HER GOWN TO THERAPY. PT DENIES NEEDS AT THIS TIME. BED LOW. CL INREAC H.
[2016-12-06 06:47] LABS: BASOPHILS 0.1 % (0.0-2.0); EOSINOPHILS 2.8 % (0-7); HEMATOCRIT 33.3 % (36.0-48.0); HEMOGLOBIN 9.4 g/dL (12-16); IMMATURE GRANULOCYTES 0.1 % (0-5); LYMPHOCYTES 13.8 % (15-50); MCH 22.5 pg (26.0-34.0); MCHC 28.2 g/dL (31.0-37.0); MCV 79.9 fL (80.0-100.0); MEAN PLATELET VOLUME 10.5 fL (7.4-10.4); MONOCYTES 9.4 % (2-11); NEUTROPHILS 73.8 % (40-80); PLATELET COUNT 238 10x3/uL (130-400); RBC 4.17 10x6/uL (4.00-5.40); RDW 18.7 % (11.5-14.5); WBC 6.9 10x3/uL (4.8-10.8)
[2016-12-06 06:57] LABS: ANION GAP 9.4 mmol/L (8-16); CALCIUM 9.6 mg/dL (8.5-10.1); CARBON DIOXIDE 38.9 mmol/L (21.0-32.0); CREATININE - SERUM 1.9 mg/dL (0.6-1.3); POTASSIUM - SERUM 4.3 mmol/L (3.5-5.1)
--- NOTE | 2016-12-06 07:00 | NUR ---
PT. WAS RECEIVED AT THE BEGINNING OF THIS SHIFT SITTING UP IN WHEELCHAIR BESIDE HER BED. VITAL SIGNS; TEMP. 98.9, PULSE 98, RESP. 16, B/P 112/52, 02SAT. 98%. PT. WEARING 02 PER NC AT 4L/MIN. PT. IS ANXIOUS AND ASKING FOR AN ATIVAN. WILL BE MONITORING HER AND ASSISTING PRN WITH ADL'S. WILL PULL HER AM MEDS AND THE ATIVAN WELL.
[2016-12-06 09:58] VITALS: BP 112/52
--- NOTE | 2016-12-06 10:39 | NUR ---
PT. RECEIVED AND ATIVAN PILL PRN AROUND 0756 PER REQUEST AND ZOFRAN 8MG AROUND 0915 PER REQUEST FOR NAUSEA. SHE DID GO TO THERAPY AND WAS WORKING WITH THEM THERE. WILL CONTINUE TO OBSERVE.
--- NOTE | 2016-12-06 12:22 | NUR ---
PT IS BACK IN HER ROOM EATTING HER LUNCH. NO COMPLAINTS OR CONCERNS AT THIS TIME.
--- NOTE | 2016-12-06 19:29 | NUR ---
PT IS RESTING IN BED DOING A UPDRAFT TX AT THIS TIME. ALERT AND ORIENTED X 3. VSS. O2 IS AT 4LPM PER NC. NO ACUTE NEEDS VOICED. SR'S ARE UP X 2 IN BED. CALL LIGHT AND BEDSIDE TABLE ARE WITHIN EASY REACH.
[2016-12-06 19:33] VITALS: BP 118/66
--- NOTE | 2016-12-06 21:26 | NUR ---
PT RESTING IN BED WITH EYES OPEN. AWAITING PHARMACY TO DELIVER HER PM INSULIN. NO NEEDS VOICED.
--- NOTE | 2016-12-07 00:07 | NUR ---
PT RESTING IN BED SPEAKING TO THE CHARGE NURSE AT THIS TIME.
--- NOTE | 2016-12-07 03:24 | NUR ---
RESTING IN BED WITH EYES CLOSED.
--- NOTE | 2016-12-07 05:43 | NUR ---
PT RESTING IN BED WITH EYES OPEN. REQUESTED FRESH ICE WATER. NO FURTHER NEEDS VOICED.
[2016-12-07 08:00] VITALS: BP 106/64
--- NOTE | 2016-12-07 08:00 | NUR ---
SHIFT ASSMT COMPLETED.PLANS FOR DC HOME TODAY ON PORT O2 PENDING DR.ERWINS MOHAN.BREAKFAST GIVEN.
--- NOTE | 2016-12-07 12:00 | NUR ---
EATING LUNCH.DENIES NEEDS.
[2016-12-07] MEDS ORDERED: REGLAN10 MG PO (12:31)
--- NOTE | 2016-12-07 13:36 | NUR ---
Nutrition Follow Up: Chart reviewed. Diet: Regular PO Intake: 69% (8 meal avg) +BM 12/05/16 No new wt Meds: Reglan, Zofran, Metformin, Lasix, Vit C, Lantus Labs noted - Glucose elevated Pt with good po intake at this time. Rec continue current diet - if Glucose continues elevated rec change diet to Diabetic. RD following.
--- NOTE | 2016-12-07 13:50 | NUR ---
DC'D TO HOME.REVIEWED HOME CARE AND CALLED MEDS INTO PHARMACY @ [facility].SPOKE WITH JERI.PT STATES UNDERSTANDING.
--- NOTE | 2016-12-07 14:06 | NUR ---
PATIENT DISHCARGING HOME WITH FAMILY. [facility] WILL PROVIDE NURSING, PT, OT. [facility] WILL SEE PATIENT IN 7-10 DAYS. [facility] WILL DELIVE RA SAMARIA HERZOG. APPOINTMENTS: DR. FAIR 12/08/16 @ 11:15, DR. KHAN 12/08/16 @ 1:00, DR. MARTINES NEEDED. ALL ORDERS HAVE BEEN FAXED WITH CONFORMATION RECIEVED. PATIENT CHOICE FOR HOME HEALTH AND [facility] FORM SIGNED, EXPLAINED AND FILED IN CHART.
--- NOTE | 2017-01-26 12:28 | DS ---
PATIENT:ONOFRE FERNANDEZ :53 MEDICAL RECORD: [id number] DISCHARGE SUMMARY ADMISSION DATE: 11/24/16 DISCHARGE DATE: 12/07/16 This is a discharge dated 12/07/2016 from inpatient rehab. PRIMARY DIAGNOSES: Decreased functional ability and ability to provide activities of daily living secondary to chronic obstructive pulmonary disease myopathy. SECONDARY DIAGNOSES: 1. Xfxcr-cn-aqdkcid hypoxic hypercapnic respiratory failure. 2. Congestive heart failure. 3. Chronic obstructive pulmonary disease. 4. Hypokalemia. 5. Pneumonia. 6. Urinary incontinence. 7. Chronic bronchitis. 8. Peripheral neuropathy. 9. Obstructive sleep apnea, on BiPAP. 10. Iron deficiency anemia. 11. Sjogren syndrome. 12. Degenerative joint disease. 13. Hypertension. 14. Hypothyroidism. 15. Diabetes. 16. Morbid obesity. 17. Anxiety. 18. Peripheral neuropathy. HOSPITAL COURSE: Full H&P is located elsewhere on the chart on this 61-year-old female, who was admitted to inpatient rehab for physical therapy and occupational therapy to improve gait, transfer skills, bed mobility, and activities of daily living to a modified independent level. She was evaluated by PT and OT and their plans of care were followed. She required long term care for observation and assessment and medication administration. She was on nebulized medications for respiratory support. She had her home CPAP/BiPAP for use with sleep. She was started on VESIcare for urinary incontinence. She had some nausea that at times interfered with therapies. She was cooperative with therapy and progressing towards goals. Case management was involved for discharge planning. Electrolytes were managed by protocols. She was considered stable for discharge on 12/07/2016. DISCHARGE MEDICATIONS: As per discharge medication reconciliation. DISCHARGE DISPOSITION: The patient is discharged home. She will continue her current diet and level of activity. She will follow up with primary care and specialists as directed. She will have home health for continued nursing, PT and OT. [facility]. TRANSINT:[id number] Voice Confirmation ID: [id number] DOCUMENT ID: [id number] Dictated By: WAYNE MELENDREZ I have interviewed/examined the above patient and agree with these documented DISCHARGE SUMMARY REPORT [id number] ONOFRE FERNANDEZN findings. CONG MARTINES MD at 1228 at 1231 CC: [id number] DICTATION DATE: 01/22/17 1404 CERTIFIED PHARMACY TECHNICIAN: 01/23/17 0301 DIS IN 12/07/16 [facility] [address] [id number]
== END 2016-12-07 14:50 | disposition home health service (06) | DRG 91 ==
LOC: D.REHAB 18:50
PROVIDERS: ADMIT Emergency Medicine
DX: G72.89 Other specified myopathies (principal); J96.21 Acute and chronic respiratory failure with hypoxia; J96.22 Acute and chronic respiratory failure with hypercapnia; J18.9 Pneumonia, unspecified organism; J44.9 Chronic obstructive pulmonary disease, unspecified; I11.0 Hypertensive heart disease with heart failure; I50.9 Heart failure, unspecified; G62.9 Polyneuropathy, unspecified; J45.909 Unspecified asthma, uncomplicated; G47.33 Obstructive sleep apnea (adult) (pediatric); D50.9 Iron deficiency anemia, unspecified; E78.5 Hyperlipidemia, unspecified; E11.9 Type 2 diabetes mellitus without complications; E87.6 Hypokalemia; G89.29 Other chronic pain; M19.90 Unspecified osteoarthritis, unspecified site; M35.00 Sjogren syndrome, unspecified; E66.01 Morbid (severe) obesity due to excess calories

== ENCOUNTER 2017-02-10 16:04 | Inpatient (IN) | payer MEDICARE, OTHER ==
[~2017-02-10] VITALS: Ht 165.1 cm; Wt 98.4 kg
[~2017-02-10 16:04] MED LIST changes: +REGLAN10 MG PO
--- NOTE | 2017-02-10 18:35 | NUR ---
RECIEVED ON FLOOR FROM MED SURG/WC TO ROOM 1116,PLACED ON 4L/NC,ORIENTED TO ROOM.CL IN REACH.
--- NOTE | 2017-02-10 19:45 | NUR ---
PT RECEIVED SITTING IN CHAIR AT BEDSIDE NO COMPLAINTS AT THIS TIME. NO SIGN/SYMPTOMS OF DISTRESS NOTED. CALL LIGHT IN REACH.
[2017-02-10 23:34] VITALS: BP 135/70
[2017-02-11] MEDS ORDERED: NORVASC10 MG PO (05:05)
[2017-02-11] MEDS ORDERED: LOVENOX40 MG/0.4 SC (05:07)
[2017-02-11] MEDS ORDERED: PEPCID40 MG PO (05:08)
[2017-02-11] MEDS ORDERED: FERROUS SULFAT325 MG PO (05:09)
[2017-02-11] MEDS ORDERED: HUMULIN R100 U/ML (05:13)
[2017-02-11] MEDS ORDERED: HUMULIN R100 U/ML SC (05:15)
[2017-02-11] MEDS ORDERED: IPRAT-ALBUT 0.5-3 ML UPD (05:16)
[2017-02-11] MEDS ORDERED: ZESTRIL20 MG PO ×2 (05:19→05:25)
[2017-02-11] MEDS ORDERED: FLAGYL500 MG PO (05:20)
[2017-02-11] MEDS ORDERED: PREDNISONE20 MG PO (05:22)
[2017-02-11] MEDS ORDERED: METOPROLOL TAR100 M1 PO (05:26)
[2017-02-11 06:39] LABS: BASOPHILS 0 % (0.0-2.0); EOSINOPHILS 1.8 % (0-7); HEMATOCRIT 33.1 % (36.0-48.0); HEMOGLOBIN 9.7 g/dL (12-16); IMMATURE GRANULOCYTES 0.9 % (0-5); LYMPHOCYTES 15.4 % (15-50); MCH 21.7 pg (26.0-34.0); MCHC 29.3 g/dL (31.0-37.0); MCV 74.2 fL (80.0-100.0); MEAN PLATELET VOLUME 9.8 fL (7.4-10.4); MONOCYTES 9.1 % (2-11); NEUTROPHILS 72.8 % (40-80); PLATELET COUNT 238 10x3/uL (130-400); RBC 4.46 10x6/uL (4.00-5.40); RDW 18.3 % (11.5-14.5)
[2017-02-11 06:59] LABS: CALC OSMOLALITY 285 mosm/kg (275-300); CALCIUM 8.4 mg/dL (8.5-10.1); CARBON DIOXIDE 34.3 mmol/L (21.0-32.0); CHLORIDE - SERUM 104 mmol/L (98-107); CREATININE - SERUM 0.6 mg/dL (0.6-1.3); GLUCOSE 124 mg/dL (74-106); SODIUM 143 mmol/L (136-145); UREA NITROGEN 12 mg/dL (7-18); eGFR NON AFRICAN AMERICAN > 90 mL/min (90-120)
--- NOTE | 2017-02-11 07:07 | NUR ---
PT IN BED LYING ON RIGHT SIDE. EASILY AROUSED TO VERBAL STIMUI. NO COMPLAINTS. FSBS 134 AND INSULIN HELD PER SLIDING SCALE. NO CONCERNS AT THIS TIME. CALL LIGHT IN REACH.
--- NOTE | 2017-02-11 07:30 | NUR ---
RESTING QUIETLY IN BED CALL LIGHT IN REACH
[2017-02-11 08:43] VITALS: BP 153/60
--- NOTE | 2017-02-11 14:12 | NUR ---
SITTING IN W/C IN ROOM. DENIES NEEDS
[2017-02-11 14:19] VITALS: Ht 165.1 cm; Wt 98.4 kg
[2017-02-11 19:38] VITALS: BP 148/77
--- NOTE | 2017-02-11 21:10 | NUR ---
PT SITING ON THE SIDE OF THE BED, TALKING ON THE PHONE, BED IN LOWEST POSITION AND CALL LIGHT WITHIN REACH.
--- NOTE | 2017-02-11 23:11 | NUR ---
PT. SITTING UP ON THE SIDE OF HER BED PLAYING GAME ON HER TABLET. HAVE ATTEMPTED SEVERAL TIMES TO GET ELECTRODES TO FUNCTION SO THAT LUGGAGE MAKER COULD GET A GOOD READING. WILL WAIT UNTIL PT. LIES DOWN TO SEE IF SIGNAL WILL IMPROVE OR WILL CHANGE ELECTRODE PADS AGAIN. PT. HAS NO VOICED NEEDS AT THIS TIME AND HAS HER CALL LIGHT WITHIN REACH. PT. UNDERSTANDS WHY SHE IS IN ISOLATION.
--- NOTE | 2017-02-12 01:10 | NUR ---
PT IN BED, EYES CLOSED, CHEST RISING AND FALLING, 02 @ 4L VIA N/C, BED IN LOWEST POSITION AND CALL LIGHT WITHIN REACH.
--- NOTE | 2017-02-12 04:57 | NUR ---
PT IN BED, EYES CLOSED, RESPIRATIONS EVEN AND UNLABORED, 02 @ 4L VIA N/C, BED IN LOWEST POSITION AND CALL LIGHT WITHIN REACH.
--- NOTE | 2017-02-12 05:14 | NUR ---
COSBY CARE GIVEN BY PUZZLE ASSEMBLER.
[2017-02-12 07:00] VITALS: BP 106/53
--- NOTE | 2017-02-12 07:30 | NUR ---
SITTING UP IN W/C. DENIES INCREASED OR NEEDS. STILL ON C-DIFF ISOLATION
--- NOTE | 2017-02-12 12:04 | NUR ---
SITTING UP IN W/C EATING LUNCH. HAS BEEN WATCHING TV IN ROOM. CALL LIGHT IN REACH.
--- NOTE | 2017-02-12 16:04 | NUR ---
HAS WORKED WITH THERAPY TODAY AND HAD SHOWER. TIRES EASILY AND NEEDS ASST WITH TRANSFERS
[2017-02-12 20:43] VITALS: BP 147/58
--- NOTE | 2017-02-12 20:43 | NUR ---
PT SITTING ON SIDE OF BED, USING HER IPAD, PT STATED SHE WAS COLD, ADJUSTD THE THERMOSTAT AND GOT HER 2 HEATED BLANKETS.
--- NOTE | 2017-02-12 23:26 | NUR ---
PT. SITTING ON THE SIDE OF HER BED AND PLAYING A GAME ON HER TABLET. PT. DENIES ANY NEEDS AT THIS TIME AND HAS HER CALL LIGHT WITHIN REACH.
--- NOTE | 2017-02-13 00:43 | NUR ---
PT IN BED, EYES CLOSED, CHEST RISING AND FALLING, 02 @ 4L VIA N/C, BED IN LOWEST POSITION AND CALL LIGHT WITHIN REACH.
--- NOTE | 2017-02-13 03:47 | NUR ---
PT IN BED, EYES CLOSED, CHEST RISING AND FALLING, 02 @ 4L VIA N/C, BED IN LOWEST POSITION AND CALL LIGHT WITHIN REACH.
[2017-02-13 07:00] VITALS: BP 109/69
--- NOTE | 2017-02-13 07:30 | NUR ---
RESTING QUIETLY IN BED CALL LIGHT IN REACH
--- NOTE | 2017-02-13 11:47 | NUR ---
SITTING IN ROOM EATING LUNCH. SITS IN W/C MOST OF THE TIME. USES BSC IN ROOM FOR ELIMINATION NEEDS. HAD SOME JELLIED STOOLS TODAY
--- NOTE | 2017-02-13 16:00 | NUR ---
SITTING UP IN ROOM WATCHING TV. DENIES NEEDS OR INCREASED PAIN
--- NOTE | 2017-02-13 19:35 | NUR ---
ASSISTED PT BACK TO BED FROM BEDSIDE COMMODE.
[2017-02-13 19:39] VITALS: BP 110/50
--- NOTE | 2017-02-13 23:30 | NUR ---
PT IN BED, WATCHING TV, 02 @ 4L, BED IN LOWEST POSITION AND CALL LIGHT WITHIN REACH.
--- NOTE | 2017-02-14 01:52 | NUR ---
PT. SITTING ON THE SIDE OF THE BED AFTER USING BSC. NO VOICED NEEDS AT THIS TIME AND SHE HAS HER CALL LIGHT WITHIN REACH.
--- NOTE | 2017-02-14 04:25 | NUR ---
PT IN BED, EYES CLOSED, CHEST RISING AND FALLING, 02 @ 4L VIA N/C, BED IN LOWEST POSITION AND CALL LIGHT WITHIN REACH.
[2017-02-14 07:27] LABS: BASOPHILS 0.1 % (0.0-2.0); EOSINOPHILS 1.6 % (0-7); HEMATOCRIT 32.8 % (36.0-48.0); HEMOGLOBIN 9.4 g/dL (12-16); IMMATURE GRANULOCYTES 0.7 % (0-5); LYMPHOCYTES 16.5 % (15-50); MCH 21.4 pg (26.0-34.0); MCHC 28.7 g/dL (31.0-37.0); MCV 74.5 fL (80.0-100.0); MEAN PLATELET VOLUME 9.9 fL (7.4-10.4); MONOCYTES 8.6 % (2-11); NEUTROPHILS 72.5 % (40-80); PLATELET COUNT 244 10x3/uL (130-400); RDW 19.7 % (11.5-14.5); WBC 10.3 10x3/uL (4.8-10.8)
[2017-02-14 07:42] LABS: CALC OSMOLALITY 278 mosm/kg (275-300); CALCIUM 8.4 mg/dL (8.5-10.1); CARBON DIOXIDE 35.4 mmol/L (21.0-32.0); CHLORIDE - SERUM 101 mmol/L (98-107); CREATININE - SERUM 0.6 mg/dL (0.6-1.3); GLUCOSE 76 mg/dL (74-106); POTASSIUM - SERUM 3.4 mmol/L (3.5-5.1); SODIUM 141 mmol/L (136-145); UREA NITROGEN 11 mg/dL (7-18); eGFR NON AFRICAN AMERICAN > 90 mL/min (90-120)
[2017-02-14 08:00] VITALS: BP 118/68
--- NOTE | 2017-02-14 13:21 | NUR ---
DENIES NEEDS. SITTING IN W/C IN ROOM
--- NOTE | 2017-02-14 17:53 | NUR ---
SITTING IN CHAIR IN ROOM TALKING TO WHO IS VISITING. DENIES NEEDS. JUST HAVE PAIN MEDICATION.
--- NOTE | 2017-02-14 20:08 | NUR ---
PT RECEIVED SITTING ON SIDE OF BED TALKING ON PHONE. NO CONCERNS MADE KNOWN. PLEASANT MOOD. CALL LIGHT IN REACH.
[2017-02-14 20:45] VITALS: BP 187/64
--- NOTE | 2017-02-15 02:48 | NUR ---
PT IN BED WITH EYES CLOSED AND CHEST RISING. NO SIGN/SYMPTOMS OF DISTRESS NOTED. CALL LIGHT IN REACH.
--- NOTE | 2017-02-15 06:40 | NUR ---
PT IN BED WITH EYES CLOSED AND CHEST RISING. EASILY AROUSED TO VERBAL STIMULI. RECEIVED MEDICATIONS PER MAR. NO COMPLAINTS OR CONCERNS NOTED. CALL LIGHT IN REACH.
[2017-02-15 08:39] VITALS: BP 143/67
--- NOTE | 2017-02-15 13:06 | RHP ---
PATIENT: ONOFRE FERNANDEZ MEDICAL RECORD: [id number] ACCOUNT: [id number] LOCATION:[facility] : 53 ADMISSION DATE: 02/10/17 REHABILITATION HISTORY AND PHYSICAL EXAMINATION POST ADMISSION PHYSICIAN EXAMINATION DATE OF ADMISSION: 02/10/2017. ADMITTING DIAGNOSIS: Acute exacerbation of COPD, yifjy-cx-ydwdyby hypoxic hypercapnic respiratory failure, and respiratory acidosis secondary to respiratory failure. HISTORY OF PRESENT ILLNESS: The patient was admitted to inpatient rehab with an acute exacerbation of chronic obstructive pulmonary disease, ftojc-fo-aienwhb hypoxic hypercapnic respiratory failure, and respiratory acidosis. She is a 61-year-old female patient who had been to the Emergency Room on January 31 with acute exacerbation of chronic obstructive pulmonary disease. She has got a longstanding history of COPD with multiple admissions. She was actually intubated in the field by ENT before coming into the Emergency Room. She was admitted to the ICU on ventilatory support. While on the vent, she tolerated PulmoCare, 35cc per NG tube after failed weaning on previous stay. She was extubated on February 05 on 3-4 liters of O2 via nasal cannula post-extubation. She was able tolerate a consistent mechanical soft diet. Her blood sugars have ranged from ____ with coverage by low resistant sliding scale. She transferred out to the ICU on February 07 to a medical telemetry bed. On February 07, she had positive stool for CDT and was started on Flagyl t.i.d. and placed on contact isolation. Prior to admit, she was living with her and was independent with ADLs and mobility. She is on home O2 nebulizer and she has all the DME stuff needed at home to make her independent. Currently, she is moderate to max assist acquiring continuous O2 at 4 liters. She tires easily and increased O2 demands with exertion or ambulation. She plans on returning home with her spouse and wants to get back to her prior level of functioning prior to returning home. COMORBIDITIES: In this patient include CDT, pneumonia, severe protein-calorie malnutrition, leukocytosis, hypokalemia, anemia, mental status changes, pulmonary edema, thyroid disease, chronic bronchitis, asthma, diabetes, Sjogren's, neuropathy, migraines, DJD, and arthritis. PAST MEDICAL HISTORY: Significant for COPD, hypothyroidism, diabetes, Sjogren syndrome, peripheral neuropathy, pneumonia and asthma. PAST SURGICAL HISTORY: Includes hysterectomy, cholecystectomy, lumbar discectomy, knee arthroscopic surgery, thumb reposition surgery, ganglion cyst removal, release of a trigger finger, salivary gland surgery, and bladder ____ x3. ALLERGIES: MUSHROOMS, PROMETHAZINE, AND LEVOTHYROXINE. CURRENT MEDICATIONS: Include Synthroid 250 mcg daily, ascorbic acid 500 mg b.i.d., prednisone 40 mg daily, Glucophage 1000 mg b.i.d. with meals, insulin Lantus 35 units at bedtime, Protonix 40 mg b.i.d., metoclopramide 10 mg a.c. and at bedtime, Daliresp 500 mcg daily, Singulair 10 mg at bedtime, Tessalon Perles 200 mg t.i.d. p.r.n. She is on tramadol as needed, lorazepam 0.5 mg t.i.d. p.r.n., Lexapro 10 mg daily, prednisone 40 mg daily, Floranex daily, Lovenox 40 HISTORY AND PHYSICAL [id number] FERNANDEZ,ONOFRE ALICIA mg subQ daily, Pulmicort 0.5 mg b.i.d., Brovana 15 mcg b.i.d., amlodipine 10 mg daily, metronidazole 500 mg t.i.d., metoprolol 100 mg b.i.d., Zestril 20 mg b.i.d., DuoNeb updrafts as needed. She is on a low resistant sliding scale with insulin. She is on Apresoline as needed for elevated blood pressures, ferrous sulfate 325 mg b.i.d., Pepcid 40 mg b.i.d., and polyethylene glycol 17 grams in 8 ounces of water daily. HABITS: No alcohol or tobacco use. FAMILY HISTORY: Noncontributory. SOCIAL HISTORY: The patient once again wants to return home with her . REVIEW OF SYSTEMS: GENERAL: Does complain of weakness and fatigue. HEENT: Denies cold, cough or congestion at this time. CARDIOVASCULAR: Denies any chest pain. LUNGS: Does complain of shortness of breath. PHYSICAL EXAMINATION: VITAL SIGNS: Stable, afebrile. GENERAL: A somewhat obese female in no acute distress, alert upon exam. HEENT: Normocephalic, atraumatic. Mucosa moist. NECK: Supple. No lymphadenopathy. LUNGS: Coarse breath sounds bilaterally with decreased breath sounds in the bases. CARDIOVASCULAR: Regular rate and rhythm. ABDOMEN: Benign. EXTREMITIES: No clubbing, cyanosis or edema. NEUROLOGIC: Intact. LABORATORY DATA: Her white count 13,000. Her H&H are 9.7 and 33.1, her platelet count is 238. Sodium 143, potassium 3.0. BUN and creatinine of 12 and 0.6 and blood sugar is noted to be 124. ASSESSMENT: This is a 61-year-old female patient admitted to rehab with a working diagnosis of acute exacerbation of COPD, gjaji-tr-egowczr hypoxic hypercapnic respiratory failure, and respiratory acidosis secondary to respiratory failure and also critical illness myopathy. The patient has potential to make improvement. We instituted the following multiple disciplinary therapies including to, but not limited to physical, occupational, prosthetics and orthotics if needed. The patient has potential to make improvement and will definitely benefit from the inpatient rehab instead of a senior care unit at this time. PLAN: 1. Admit to [facility] rehab for the following disciplines: A. Physical therapy to improve gait, all transfer skills and bed mobility to a modified independent level. B. Occupational therapy to improve activities of daily living a modified independent level. C. Case management to assist with discharge planning and placement options. D. Nutrition to assist in nutritional needs. E. Rehabilitation nursing to assist in monitoring the patient's underlying medical conditions and to assist with any type of bowel or bladder management. HISTORY AND PHYSICAL [id number] ONOFRE FERNANDEZ 2. The patient's current medication and medical care will be continued. 3. The patient will be placed on standard fall precautions. 4. We will replace her potassium. 5. We will adjust medications as necessary. 6. We will go ahead and update FIM scores as available. 7. We will discuss this patient during care team staff meeting this week. TRANSINT:[id number] Voice Confirmation ID: [id number] DOCUMENT ID: [id number] CONG MARTINES MD at 1306 CC: [id number] DICTATION DATE: 02/11/17 0907 BLOW UP OPERATOR: 02/11/17 1345 [place] [address]
--- NOTE | 2017-02-15 13:26 | NUR ---
patient alert and oriented x3. Resp even and unlab O2 at 4 lpm/nc. pt up in bedside chair. denies pain or discomfort at present. remains in contact isolation for cdt. call light at side
--- NOTE | 2017-02-15 14:12 | NUR ---
Nutrition Follow Up: Pt reported that her appetite is improving. She said that she is feeling better. Pt is eating 71% meal avg on a diabetic [facility] soft diet. Wt stable. +BM 02/15/17. Labs noted - Glucose elevated at times. Meds noted including Lantus, Humulin, Metformin. Pt with fair po intake at this time. Rec continue current diet. Will continue to provide selective menus and honor food preferences. RD following.
[2017-02-15 19:16] VITALS: BP 128/66
--- NOTE | 2017-02-15 19:45 | NUR ---
PT RECEIVED SITTING ON SIDE OF BED WATCHING TV. REQUEST ASSISTANCE GETTING INTO BED WITH PT NOT NEEDING ASSIST. COMPLAINS OF PAIN TO LOWER BACK AND HIP WITH PAIN OF 7/10 WITH REQUEST FOR PRN NORCO AND ATIVAN WITH SCHEDULED MEDICATIONS. NO OTHER CONCERNS MADE KNOWN AT THIS TIME. CALL LIGHT IN REACH.
--- NOTE | 2017-02-16 01:48 | NUR ---
PT IN BED WITH EYES CLOSED AND CHEST RISING. NO SIGN/SYMPTOMS OF DISTRESS NOTED AT THIS TIME. CALL LIGHT IN REACH.
--- NOTE | 2017-02-16 05:54 | NUR ---
PT SITTING ON SIDE OF BED FSBS CHECKED AT 63 WITH GRAPE JUICE GIVEN AND RECHECKED 40 MIN WITH FSBS 127. NO CONCERNS NOTED. CALL LIGHT IN REACH.
[2017-02-16 06:23] LABS: BASOPHILS 0.1 % (0.0-2.0); EOSINOPHILS 0.9 % (0-7); HEMATOCRIT 33.7 % (36.0-48.0); HEMOGLOBIN 9.7 g/dL (12-16); IMMATURE GRANULOCYTES 0.4 % (0-5); MCH 21.7 pg (26.0-34.0); MCHC 28.8 g/dL (31.0-37.0); MCV 75.2 fL (80.0-100.0); MEAN PLATELET VOLUME 10.3 fL (7.4-10.4); MONOCYTES 7.1 % (2-11); NEUTROPHILS 74.5 % (40-80); PLATELET COUNT 267 10x3/uL (130-400); RBC 4.48 10x6/uL (4.00-5.40); RDW 20.3 % (11.5-14.5); WBC 9.7 10x3/uL (4.8-10.8)
[2017-02-16 06:43] LABS: CARBON DIOXIDE 36.7 mmol/L (21.0-32.0); CHLORIDE - SERUM 100 mmol/L (98-107); CREATININE - SERUM 0.6 mg/dL (0.6-1.3); SODIUM 138 mmol/L (136-145); UREA NITROGEN 13 mg/dL (7-18); eGFR NON AFRICAN AMERICAN > 90 mL/min (90-120)
[2017-02-16 06:53] LABS: CALC OSMOLALITY 273 mosm/kg (275-300); GLUCOSE 60 mg/dL (74-106)
--- NOTE | 2017-02-16 08:00 | NUR ---
SHIFT ASSMT COMPLETED.HAD SOFT-SEMI LOOSE STOOL.CL IN REACH.
[2017-02-16 09:03] VITALS: BP 145/63
--- NOTE | 2017-02-16 12:00 | NUR ---
SITTING UP EATING LUNCH.
--- NOTE | 2017-02-16 17:00 | NUR ---
CARE TEAM MEETING: PATIENT PROGRESSING WELL AND TENATIVE DISCHARGE DATE IS 02/24/17. WILL CONTINUE TO FOLLOW WITH PATIENT UNTIL DISCHARGED
[2017-02-16 19:54] VITALS: BP 133/47
--- NOTE | 2017-02-16 19:54 | NUR ---
PT IN BED WITH HOB UP FOR COMFORT, WATCHING TV, NO COMPLAINTS AT THIS TIME, BED IN LOWEST POSITION AND CALL LIGHT WITHIN REACH.
--- NOTE | 2017-02-16 23:54 | NUR ---
PT IN BED WITH HOB UP FOR COMFORT, EYES CLOSED, RESPIRATIONS EVEN AND UNLABORED, 02 @ 4L VIA N/C, BED IN LOWEST POSITION AND CALL LIGHT WITHIN REACH.
--- NOTE | 2017-02-17 02:05 | NUR ---
IN BED, EYES CLOSED. RESTING ON RIGHT SIDE. APPEARS COMFORTABLE.
--- NOTE | 2017-02-17 04:22 | NUR ---
PT IN BED, EYES CLOSED, CHEST RISING AND FALLING, 02 @ 4L VIA N/C, BED IN LOWEST PSOTIION AND CALL LIGHT WITHIN REACH.
--- NOTE | 2017-02-17 08:00 | NUR ---
SHIFT ASSMT COMPLETED.DENIES NEEDS.STOOLS REMAIN SOFT AND HAS ODOR.CONTINUE ISOLATION.
[2017-02-17 09:04] VITALS: BP 144/58
--- NOTE | 2017-02-17 12:00 | NUR ---
SITTING UP EATING LUNCH.CL IN REACH.
--- NOTE | 2017-02-17 19:10 | NUR ---
PT SITTING ON SIDE OF BED, TALKING ON THE PHONE, BED IN LOWEST POSITION AND CALL LIGHT WITHIN REACH.
[2017-02-17 20:57] VITALS: BP 146/50
--- NOTE | 2017-02-17 23:10 | NUR ---
PT IN BED, EYES CLOSED, CHEST RISING AND FALLING, 02 @ 4L VIA N/C, BED IN LOWEST POSITION AND CALL LIGHT WITHIN REACH.
--- NOTE | 2017-02-18 01:30 | NUR ---
PT RESTING IN BED, EYES OPEN, DENIES NEEDS. BED LOW. CL IN [facility].
--- NOTE | 2017-02-18 02:47 | NUR ---
PT IN BED, RESTING QUIETLY, RESPIRATIONS EVEN AND UNLABORED, 02 @ 4L VIA N/C, BED IN LOWEST POSITION AND CALL LIGHT WITHIN REACH.
[2017-02-18 05:57] LABS: BASOPHILS 0.2 % (0.0-2.0); EOSINOPHILS 0.9 % (0-7); HEMATOCRIT 34.8 % (36.0-48.0); HEMOGLOBIN 9.8 g/dL (12-16); IMMATURE GRANULOCYTES 0.3 % (0-5); LYMPHOCYTES 17.1 % (15-50); MCH 21.7 pg (26.0-34.0); MCHC 28.2 g/dL (31.0-37.0); MEAN PLATELET VOLUME 9.6 fL (7.4-10.4); NEUTROPHILS 73.5 % (40-80); PLATELET COUNT 242 10x3/uL (130-400); RBC 4.52 10x6/uL (4.00-5.40); RDW 20.9 % (11.5-14.5); WBC 9.5 10x3/uL (4.8-10.8)
[2017-02-18 06:13] LABS: CALC OSMOLALITY 279 mosm/kg (275-300); CALCIUM 8.9 mg/dL (8.5-10.1); CARBON DIOXIDE 36.4 mmol/L (21.0-32.0); CHLORIDE - SERUM 103 mmol/L (98-107); CREATININE - SERUM 0.7 mg/dL (0.6-1.3); GLUCOSE 74 mg/dL (74-106); POTASSIUM - SERUM 4.5 mmol/L (3.5-5.1); SODIUM 141 mmol/L (136-145); UREA NITROGEN 12 mg/dL (7-18); eGFR NON AFRICAN AMERICAN 90 mL/min (90-120)
--- NOTE | 2017-02-18 06:15 | NUR ---
PT SITTING ON SIDE OF BED, BED IN LOWEST POSITION AND CALL LIGHT WITHIN REACH.
--- NOTE | 2017-02-18 07:30 | NUR ---
SITTING UP ON SIDE OF BED. DENIES NEEDS. USES BSC.
[2017-02-18 08:42] VITALS: BP 125/94
--- NOTE | 2017-02-18 09:55 | NUR ---
SITTING ON SIDE OF BED PLAYING GAME ON COMPUTER. REMAINS ON ISOLATION FOR C-DIFF.
--- NOTE | 2017-02-18 12:00 | NUR ---
SITTING UP IN ROOM EATING LUNCH. CALL LIGHT IN REACH
[2017-02-18 18:58] VITALS: BP 118/51
--- NOTE | 2017-02-18 19:20 | NUR ---
PT SITTING ON SIDE OF BED, USING HER IPAD, NO COMPLAINTS AT THIS TIME, BED IN LOWEST POSITION AND CALL LIGHT WITHIN REACH.
--- NOTE | 2017-02-18 22:30 | NUR ---
PT IN BED, RESTING QUIETLY, RESPIRATIONS EVEN AND UNLABORED, 02 @ 4L VIA N/C, BED IN LOWEST POSITION AND CALL LIGHT WIHTIN REACH.
--- NOTE | 2017-02-19 02:53 | NUR ---
PT IN BED WITH EYES CLOSED LYING ON RIGHT SIDE. NO SIGN/SYMPTOMS OF DISRESS NOTED. CALL LIGHT IN REACH.
[2017-02-19 07:00] VITALS: BP 134/45
--- NOTE | 2017-02-19 07:30 | NUR ---
LAYING DOWN IN BED RESTING QUIETLY. NO S/S DISTRESS. CALL LIGHT IN REACH.
--- NOTE | 2017-02-19 10:49 | NUR ---
HAS ALREADY HAD 3 BM'S. USES BSC. TIRES EASILY.
--- NOTE | 2017-02-19 15:39 | NUR ---
SITTING ON SIDE OF BED USING TABLET. DENIES NEEDS OR C/O. PAIN CONTROLLED WITH CURRENT MEDS. DIARRHEA IMPROVED AFTER LOPARAMIDE GIVEN EARLIER.
--- NOTE | 2017-02-19 19:45 | NUR ---
PT RECEIVED IN BED WITH EYES CLOSED AND CHEST RISING. NO SIGN/SYMPTOMS OF DISTRESS NOTED. CALL LIGHT IN REACH.
--- NOTE | 2017-02-19 23:49 | NUR ---
PT COMPLAINS OF SHAKING WITH BLOOD [place]GAR LEVEL CHECKED AT 179. PT ABLE TO RELAX AND FALL ASLEEP. WHEN MEDICATIONS GIVEN PT STATES THAT SHE WAS FEELING BETTER. PRN ATIVAN GIVEN. B/P MEDICATIONS HELD DUE TO 99/62 BLOOD PRESSURE. PT RETURNED TO RESTING. REQUEST ASSISTANCE WITH TOILETING WITH URINE ONLY. WHEN SITTING ON SIDE OF BED STATES THAT SHE IS FEELING LIGHT HEADED. B/P RECHECKED 101/56 AND PT STATES THAT LIGHT HEADED FEELING WAS GOING AWAY. IN BED WITH EYES CLOSED AND CHEST RISING. NO SIGN/SYMPTOMS OF DISTRESS NOTED. CALL LIGHT IN REACH. WILL CONTINUE TO OBSERVE.
[2017-02-20 01:17] VITALS: BP 99/62
--- NOTE | 2017-02-20 03:11 | NUR ---
PT IN BED WITH EYES CLOSED AND CHEST RISING. NO SIGN/SYMPTOMS OF DISTRESS NOTED. NO CONTINUED COMPLAINTS OF SHAKING OR LIGHT HEADEDNESS. WILL CONTINUE TO OBSERVE. CALL LIGHT IN REACH.
[2017-02-20 07:00] VITALS: BP 140/58
--- NOTE | 2017-02-20 08:00 | NUR ---
SHIFT ASSMT COMPLETED.DENIES NEEDS.SITTING UP ON SIDE OF BED.BREAKFAST GIVEN.CL IN REACH.
--- NOTE | 2017-02-20 12:00 | NUR ---
EATING LUNCH.DENIES NEEDS.
[2017-02-20 19:00] VITALS: BP 113/55
--- NOTE | 2017-02-20 23:29 | NUR ---
PT RECEIVED IN CHAIR AT BEDSIDE WITH FAMILY IN ROOM. STATES PAIN 0F 7/10 TO BACK WITH PRN PAIN MEDICATIONS GIVEN PER JAN. NO OTHER CONCERNS MADE KNOWN AT THIS TIME. WILL CONTINUE TO OBSERVE. CALL LIGHT IN REACH.
[2017-02-21 01:12] VITALS: BP 113/55
--- NOTE | 2017-02-21 02:51 | NUR ---
PT IN BED WITH EYES CLOSED AND CHEST RISING LYING ON RIGHT SIDE. NO SIGN/SYMPTOMS OF DISTRESS NOTED. CALL LIGHT IN REACH.
[2017-02-21 06:15] LABS: BASOPHILS 0.2 % (0.0-2.0); EOSINOPHILS 0.9 % (0-7); HEMATOCRIT 31.8 % (36.0-48.0); HEMOGLOBIN 9.2 g/dL (12-16); IMMATURE GRANULOCYTES 0.2 % (0-5); MCH 22.2 pg (26.0-34.0); MCHC 28.9 g/dL (31.0-37.0); MCV 76.8 fL (80.0-100.0); MEAN PLATELET VOLUME 10.2 fL (7.4-10.4); MONOCYTES 9.2 % (2-11); NEUTROPHILS 71.5 % (40-80); PLATELET COUNT 236 10x3/uL (130-400); RBC 4.14 10x6/uL (4.00-5.40); RDW 22.1 % (11.5-14.5); WBC 6.6 10x3/uL (4.8-10.8)
[2017-02-21 06:28] LABS: CALC OSMOLALITY 273 mosm/kg (275-300); CARBON DIOXIDE 36.1 mmol/L (21.0-32.0); CHLORIDE - SERUM 101 mmol/L (98-107); CREATININE - SERUM 0.6 mg/dL (0.6-1.3); POTASSIUM - SERUM 4.2 mmol/L (3.5-5.1); SODIUM 138 mmol/L (136-145); UREA NITROGEN 13 mg/dL (7-18); eGFR NON AFRICAN AMERICAN > 90 mL/min (90-120)
[2017-02-21 06:29] LABS: GLUCOSE 70 mg/dL (74-106)
--- NOTE | 2017-02-21 07:30 | NUR ---
SITTING UP ON SIDE OF BED WATCHING TV. DENIES NEEDS.
--- NOTE | 2017-02-21 07:40 | NUR ---
PT IN BED WITH EYES OPEN SITTING ON SIDE OF BED. NO CONCERN MADE KNOWN. RECEIVED MEDICATIONS PER MAR WITHOUT DIFFICULTY. CALL LIGHT IN REACH.
[2017-02-21 08:14] VITALS: BP 118/62
--- NOTE | 2017-02-21 10:14 | NUR ---
SITTING ON SIDE OF BED. PAIN MEDS GIVEN ORDERED. DENIES DIARRHEA SO FAR TODAY. WEARS OXYGEN ALL THE TIME.
--- NOTE | 2017-02-21 14:44 | NUR ---
IN THERAPY ROOM
--- NOTE | 2017-02-21 18:13 | NUR ---
SITTING ON SIDE OF BED EATING SUPPER. DENIES NEEDS. STILL ON ISOLATION FOR C-DIFF.
--- NOTE | 2017-02-21 19:00 | NUR ---
PT SITTING ON SIDE OF BED, PLAYING ON IPAD, NO COMPLAINTS AT THIS TIME, BED IN LOWEST POSITION AND CALL LIGHT WIHTIN REACH.
[2017-02-21 22:46] VITALS: BP 117/57
--- NOTE | 2017-02-21 23:00 | NUR ---
PT LYING IN BED, RESTING QUIETLY, RESPIRATIONS EVEN AND UNLABORED, O2 @ 4L VIA N/C, BED IN LOWEST POSITION AND CALL LIGHT WITHIN REACH.
--- NOTE | 2017-02-22 01:15 | NUR ---
RESTING IN BED ON RIGHT SIDE. APPEARS COMFORTABLE.
--- NOTE | 2017-02-22 04:28 | NUR ---
PT LYING IN BED WITH HOB UP FOR COMFORT, EYES CLOSED, CHEST RISING AND FALLING, 02 @ 4L VIA N/C, BED IN LOWEST POSITION AND CALL LIGHT WITHIN REACH.
--- NOTE | 2017-02-22 07:30 | NUR ---
RESTING QUIETLY IN BED. CALL LIGHT IN REACH.
--- NOTE | 2017-02-22 10:12 | NUR ---
Nutrition Follow Up: Chart reviewed. Pt is eating 83% meal avg on a diabetic mechanical soft diet. +BM 02/22/17. No new wt to assess. Labs reviewed. Meds noted including Lantus, Metformin, Prednisone, Vit C, Humulin. Pt with good po intake at this time. Rec continue current diet. RD following.
[2017-02-22 12:34] VITALS: BP 125/56
--- NOTE | 2017-02-22 12:55 | NUR ---
SITTING UP IN CHAIR IN ROOM EATING LUNCH AND WATCHING TV. DENIES INCREASED PAIN OR NEEDS.
--- NOTE | 2017-02-22 17:49 | NUR ---
SITTING IN CHAIR IN ROOM WATCHING TV. HAD ANOTHER STOOL THAT WAS NOT DIARRHEA. DENIES NEEDS. CALL LIGHT IN REACH
[2017-02-22 19:14] VITALS: BP 125/54
[2017-02-23 06:47] LABS: BASOPHILS 0 % (0.0-2.0); EOSINOPHILS 0.6 % (0-7); HEMATOCRIT 32.3 % (36.0-48.0); HEMOGLOBIN 9.4 g/dL (12-16); IMMATURE GRANULOCYTES 0.3 % (0-5); LYMPHOCYTES 17.5 % (15-50); MCH 22.7 pg (26.0-34.0); MCHC 29.1 g/dL (31.0-37.0); MEAN PLATELET VOLUME 9.6 fL (7.4-10.4); MONOCYTES 8.6 % (2-11); PLATELET COUNT 229 10x3/uL (130-400); RBC 4.14 10x6/uL (4.00-5.40); RDW 22.6 % (11.5-14.5); WBC 7.1 10x3/uL (4.8-10.8)
[2017-02-23 07:02] LABS: CALC OSMOLALITY 279 mosm/kg (275-300); CARBON DIOXIDE 36.6 mmol/L (21.0-32.0); CHLORIDE - SERUM 101 mmol/L (98-107); CREATININE - SERUM 0.6 mg/dL (0.6-1.3); GLUCOSE 68 mg/dL (74-106); POTASSIUM - SERUM 4.4 mmol/L (3.5-5.1); SODIUM 141 mmol/L (136-145); UREA NITROGEN 16 mg/dL (7-18); eGFR NON AFRICAN AMERICAN > 90 mL/min (90-120)
--- NOTE | 2017-02-23 08:00 | NUR ---
SHIFT ASSMT COMPLETED.DENIES NEEDS.BREAKFAST GIVEN.CL IN REACH.HAD SOFT STOOL.
[2017-02-23 09:10] VITALS: BP 123/47
--- NOTE | 2017-02-23 12:00 | NUR ---
EATING LUNCH.DENIES NEEDS.
--- NOTE | 2017-02-23 17:14 | NUR ---
CARE TEAM MEETING: PATIENT , SPOUSE AND DAUGHTER ATTENDED MEETING. PATIENT WILL DISCHARGE IN AM. WILL CONTINUE TO FOLLOW WITH PATIENT
[2017-02-23 19:15] VITALS: BP 113/50
--- NOTE | 2017-02-23 19:35 | NUR ---
PT SITTING ON SIDE OF BED PLAYING ON HER IPAD, NO COMPLAINTS AT THIS TIME, BED IN LOWEST POSITION AND CALL LIGHT UNIQUE VALENZUELA.
--- NOTE | 2017-02-23 23:35 | NUR ---
PT IN BED WITH HOB UP FOR COMFORT, TV ON, RESTING QUIETLY, 02 @ 4L VIA N/C, BED IN LOWEST POSITION AND CALL LIGHT WITHIN REACH.
--- NOTE | 2017-02-24 03:30 | NUR ---
PT IN BED WITH HOB UP FOR COMFORT, EYES CLOSED, CHEST RISING AND FALLING, 02 @ 4L VIA N/C, BED IN LOWEST POSITION AND CALL LIGHT WITHIN REACH.
--- NOTE | 2017-02-24 03:44 | NUR ---
PT IN BED WITH EYES CLOSED AND CHEST RISING. NO CONCERNS MADE KNOWN AT THIS TIME. REMAINS IN CONTACT ISOLATION. CALL LIGHT IN REACH.
--- NOTE | 2017-02-24 08:00 | NUR ---
SHIFT ASSMT COMPLETED.DENIES NEEDS.EXCITED ABOUT GOING HOME TODAY.BREAKFAST GIVEN,CL IN REACH.
[2017-02-24 08:19] VITALS: BP 130/67
[2017-02-24] MEDS ORDERED: TEMAZEPAM30 MG PO (09:17)
[2017-02-24] MEDS ORDERED: ZOFRAN8 MG PO (09:18)
--- NOTE | 2017-02-24 11:22 | NUR ---
PATIENT DISCHARGING HOME WITH FAMILY.[facility] WILL RESUME CARE AT HOME [facility] CALL[facility] WILL SEE PATIENT AT HOME. NO NEW DME NEEDED AT THIS TIME. DR. MARTINES 03/02/17 @ 9:00. PATIENT CHOICE FOR HOME HEALTH AND [facility] FORM SIGNED , EXPLAINED AND FILED IN CHART.PATIENT EDUCATED ON DEEP BREATHING EXERCISES. VOICED UNDERSTANDING. ORDERS HAVE BEEN FAXED WITH CONFORMATION RECIEVED
--- NOTE | 2017-02-24 11:35 | NUR ---
DISCHARGED IN STABLE CONDITION;REVIEWED MEDS AND HOME CARE INSTRUCTIONS WITH STATED UNDRSTANDING.
== END 2017-02-24 11:35 | disposition home health service (06) | DRG 190 ==
LOC: D.REHAB 16:04
PROVIDERS: ADMIT Emergency Medicine
DX: J44.1 Chronic obstructive pulmonary disease with (acute) exacerbation (principal); J96.22 Acute and chronic respiratory failure with hypercapnia; J96.21 Acute and chronic respiratory failure with hypoxia; J18.9 Pneumonia, unspecified organism; E43 Unspecified severe protein-calorie malnutrition; E87.2 Acidosis; J81.1 Chronic pulmonary edema; J45.901 Unspecified asthma with (acute) exacerbation; J90 Pleural effusion, not elsewhere classified; D72.829 Elevated white blood cell count, unspecified; E87.6 Hypokalemia; D64.9 Anemia, unspecified; R41.82 Altered mental status, unspecified; E11.9 Type 2 diabetes mellitus without complications; M35.00 Sjogren syndrome, unspecified; G62.9 Polyneuropathy, unspecified; G43.909 Migraine, unspecified, not intractable, without status migrainosus; M19.90 Unspecified osteoarthritis, unspecified site; I10 Essential (primary) hypertension